=== PATIENT | male | born 1975 | race Caucasian/White ===

== ENCOUNTER 2016-10-29 20:52 | Inpatient (IN) | payer OTHER ==
[2016-10-29] MEDS ORDERED: IPRATROPIUM 0.5 MG/2.5 ML NEBU INHALATION STA (21:12)
[2016-10-29] MEDS ORDERED: SODIUM CHLORIDE 0.9% 1,000 ML IV STA ×3 (21:12→22:54)
[2016-10-29] MEDS ORDERED: ALBUTEROL NEBULIZED 2.5 MG/3 ML INHALATION STA (21:12)
[2016-10-29] MEDS ORDERED: MORPHINE SULFATE 4 MG/ML SYRINGE IVP STA (21:12)
--- NOTE | 2016-10-29 21:14 | ED ---
General Adult HPI - General Chief complaint: Shortness of Breath Stated complaint: SOB Time Seen by Provider: 10/29/16 21:01 Source: patient, EMS, RN notes reviewed, old records reviewed Mode of arrival: EMS Limitations: no limitations - History of Present Illness Initial comments: This is a 41-year-old male the ER for evaluation of severe shortness of breath and chest pain. Heart racing. Nocturnal. Patient was discharged from hospital 2 days ago brace reaction to chemotherapy. Patient denies fever. Patient states she was feeling well upon discharge. He does admit to significant stress of breath or worsening today he did try oxygen for therapy which no which had no help. - Related Data Home Medications Medication Instructions Recorded Confirmed Ibuprofen [Motrin] 800 mg PO BID PRN 10/29/16 10/29/16 fentaNYL 100MCG/HR PATCH 1 patch TRANSDERM Q72H 10/29/16 10/29/16 [Duragesic 100MCG/HR] fentaNYL 50MCG/HR PATCH [Duragesic 1 patch TRANSDERM Q72H 10/29/16 10/29/16 50MCG/HR] oxyCODONE HCL 30 mg PO QID PRN 10/29/16 10/29/16 Allergies Allergy/AdvReac Type Severity Reaction Status Date / Time Penicillins Allergy Unknown Verified 10/29/16 21:28 Childhood Review of Systems ROS Statement: Those systems with pertinent positive or pertinent negative responses have been documented in the HPI. ROS Other: All systems not noted in ROS Statement are negative. Past Medical History Past Medical History: Cancer Additional Past Medical History / Comment(s): lung bilat adrenal gland History of Any Multi-Drug Resistant Organisms: None Reported Additional Past Surgical History / Comment(s): wrist, ankle, lung Past Psychological History: No Psychological Hx Reported Smoking Status: Former smoker Past Alcohol Use History: None Reported Past Drug Use History: None Reported - Past Family History Father Family Medical History: COPD General Exam Limitations: no limitations General appearance: alert, in no apparent distress Head exam: Present: atraumatic, normocephalic, normal inspection Eye exam: Present: normal appearance, PERRL, EOMI. Absent: scleral icterus, conjunctival injection, periorbital swelling ENT exam: Present: normal exam, mucous membranes moist Neck exam: Present: normal inspection. Absent: tenderness, meningismus, lymphadenopathy Respiratory exam: Present: normal lung sounds bilaterally. Absent: respiratory distress, wheezes, rales, rhonchi, stridor Cardiovascular Exam: Present: regular rate, normal rhythm, normal heart sounds. Absent: systolic murmur, diastolic murmur, rubs, gallop, clicks GI/Abdominal exam: Present: soft, normal bowel sounds. Absent: distended, tenderness, guarding, rebound, rigid Extremities exam: Present: normal inspection, full ROM, normal capillary refill. Absent: tenderness, pedal edema, joint swelling, calf tenderness Back exam: Present: normal inspection Neurological exam: Present: alert, oriented X3, CN II-XII intact Psychiatric exam: Present: normal affect, normal mood Skin exam: Present: warm, dry, intact, normal color. Absent: rash Course Vital Signs 10/29/16 10/29/16 10/29/16 20:59 21:53 22:02 Temperature 97.8 F Pulse Rate 136 H 121 H 128 H Respiratory 22 22 Rate Blood Pressure 96/60 101/63 O2 Sat by Pulse 97 100 Oximetry 10/29/16 10/29/16 10/29/16 22:11 22:26 22:37 Temperature Pulse Rate 122 H 130 H 138 H Respiratory Rate Blood Pressure O2 Sat by Pulse Oximetry 10/29/16 23:00 Temperature Pulse Rate 112 H Respiratory 16 Rate Blood Pressure 112/65 O2 Sat by Pulse 96 Oximetry - Reevaluation(s) Reevaluation #1: 10/29/16 22:19 Patient having adequate pain relief, mild improvement of breathing, but does have diffuse pulmonary infiltrates EKG Findings - EKG Comments: EKG Findings:: EKG shows sinus tachycardia rate 120,. PA 88, QRS 88, QTC 619 Medical Decision Making - Medical Decision Making Female 41-year-old male to the ER with pneumonia, history of CVA, patient with recent hospitalization, positive nosocomial pneumonia. We'll admit for appropriate IV antibiotics - Lab Data Result diagrams: 11/04/16 05:46 11/04/16 05:46 Lab Results 10/29/16 10/29/16 10/29/16 Range/Units 20:50 20:50 20:50 WBC 10.7 H (3.8-10.6) k/uL RBC 4.35 (4.30-5.90) m/uL Hgb 11.9 L (13.0-17.5) gm/dL Hct 38.6 L (39.0-53.0) % MCV 88.8 (80.0-100.0) fL MCH 27.4 (25.0-35.0) pg MCHC 30.9 L (31.0-37.0) g/dL RDW 16.7 H (11.5-15.5) % Plt Count 363 (150-450) k/uL Neutrophils % 95 % Lymphocytes % 2 % Monocytes % 2 % Eosinophils % 1 % Basophils % 0 % Neutrophils # 10.2 H (1.3-7.7) k/uL Lymphocytes # 0.2 L (1.0-4.8) k/uL Monocytes # 0.2 (0-1.0) k/uL Eosinophils # 0.1 (0-0.7) k/uL Basophils # 0.0 (0-0.2) k/uL Hypochromasia Moderate Anisocytosis Slight PT (9.0-12.0) sec INR (<1.2) APTT (22.0-30.0) sec D-Dimer (<0.60) mg/L FEU Sodium 139 (137-145) mmol/L Potassium 4.3 (3.5-5.1) mmol/L Chloride 98 (98-107) mmol/L Carbon Dioxide 27 (22-30) mmol/L Anion Gap 14 mmol/L BUN 13 (9-20) mg/dL Creatinine 0.55 L (0.66-1.25) mg/dL Est GFR (MDRD) Af Amer >60 (>60 ml/min/1.73 sqM) Est GFR (MDRD) Non-Af >60 (>60 ml/min/1.73 sqM) Glucose 74 (74-99) mg/dL Lactic Ac Sepsis Rflx Plasma Lactic Acid Yariel (0.7-2.0) mmol/L Calcium 8.5 (8.4-10.2) mg/dL Magnesium 1.7 (1.6-2.3) mg/dL Total Bilirubin 0.6 (0.2-1.3) mg/dL AST 16 L (17-59) U/L ALT 25 (21-72) U/L Alkaline Phosphatase 189 H (38-126) U/L Total Creatine Kinase 26 L (55-170) U/L CK-MB (CK-2) 0.9 (0.0-2.4) ng/mL CK-MB (CK-2) Rel Index 3.5 Troponin I 0.049 H* (0.000-0.034) ng/mL NT-Pro-B Natriuret Pep pg/mL Total Protein 5.1 L (6.3-8.2) g/dL Albumin 2.5 L (3.5-5.0) g/dL 10/29/16 10/29/16 10/29/16 Range/Units 20:50 20:50 20:50 WBC (3.8-10.6) k/uL RBC (4.30-5.90) m/uL Hgb (13.0-17.5) gm/dL Hct (39.0-53.0) % MCV (80.0-100.0) fL MCH (25.0-35.0) pg MCHC (31.0-37.0) g/dL RDW (11.5-15.5) % Plt Count (150-450) k/uL Neutrophils % % Lymphocytes % % Monocytes % % Eosinophils % % Basophils % % Neutrophils # (1.3-7.7) k/uL Lymphocytes # (1.0-4.8) k/uL Monocytes # (0-1.0) k/uL Eosinophils # (0-0.7) k/uL Basophils # (0-0.2) k/uL Hypochromasia Anisocytosis PT 16.0 H (9.0-12.0) sec INR 1.7 H (<1.2) APTT 26.3 (22.0-30.0) sec D-Dimer 3.30 H (<0.60) mg/L FEU Sodium (137-145) mmol/L Potassium (3.5-5.1) mmol/L Chloride (98-107) mmol/L Carbon Dioxide (22-30) mmol/L Anion Gap mmol/L BUN (9-20) mg/dL Creatinine (0.66-1.25) mg/dL Est GFR (MDRD) Af Amer (>60 ml/min/1.73 sqM) Est GFR (MDRD) Non-Af (>60 ml/min/1.73 sqM) Glucose (74-99) mg/dL Lactic Ac Sepsis Rflx Plasma Lactic Acid Yariel 4.2 H* (0.7-2.0) mmol/L Calcium (8.4-10.2) mg/dL Magnesium (1.6-2.3) mg/dL Total Bilirubin (0.2-1.3) mg/dL AST (17-59) U/L ALT (21-72) U/L Alkaline Phosphatase (38-126) U/L Total Creatine Kinase (55-170) U/L CK-MB (CK-2) (0.0-2.4) ng/mL CK-MB (CK-2) Rel Index Troponin I (0.000-0.034) ng/mL NT-Pro-B Natriuret Pep 1270 pg/mL Total Protein (6.3-8.2) g/dL Albumin (3.5-5.0) g/dL 10/29/16 Range/Units 21:36 WBC (3.8-10.6) k/uL RBC (4.30-5.90) m/uL Hgb (13.0-17.5) gm/dL Hct (39.0-53.0) % MCV (80.0-100.0) fL MCH (25.0-35.0) pg MCHC (31.0-37.0) g/dL RDW (11.5-15.5) % Plt Count (150-450) k/uL Neutrophils % % Lymphocytes % % Monocytes % % Eosinophils % % Basophils % % Neutrophils # (1.3-7.7) k/uL Lymphocytes # (1.0-4.8) k/uL Monocytes # (0-1.0) k/uL Eosinophils # (0-0.7) k/uL Basophils # (0-0.2) k/uL Hypochromasia Anisocytosis PT (9.0-12.0) sec INR (<1.2) APTT (22.0-30.0) sec D-Dimer (<0.60) mg/L FEU Sodium (137-145) mmol/L Potassium (3.5-5.1) mmol/L Chloride (98-107) mmol/L Carbon Dioxide (22-30) mmol/L Anion Gap mmol/L BUN (9-20) mg/dL Creatinine (0.66-1.25) mg/dL Est GFR (MDRD) Af Amer (>60 ml/min/1.73 sqM) Est GFR (MDRD) Non-Af (>60 ml/min/1.73 sqM) Glucose (74-99) mg/dL Lactic Ac Sepsis Rflx Y Plasma Lactic Acid Yariel (0.7-2.0) mmol/L Calcium (8.4-10.2) mg/dL Magnesium (1.6-2.3) mg/dL Total Bilirubin (0.2-1.3) mg/dL AST (17-59) U/L ALT (21-72) U/L Alkaline Phosphatase (38-126) U/L Total Creatine Kinase (55-170) U/L CK-MB (CK-2) (0.0-2.4) ng/mL CK-MB (CK-2) Rel Index Troponin I (0.000-0.034) ng/mL NT-Pro-B Natriuret Pep pg/mL Total Protein (6.3-8.2) g/dL Albumin (3.5-5.0) g/dL - Radiology Data Radiology results: report reviewed (Chest x-ray is positive for pneumonia), image reviewed Disposition Clinical Impression: Nosocomial pneumonia, Lung cancer Disposition: ADMITTED IP TO THIS HOSP Condition: Fair
[2016-10-29 21:29] LABS: Anisocytosis Slight; Basophils % (A) 0 %; CH 27.1; CHCM 30.6; Eosinophils # (A) 0.1 k/uL (0-0.7); Eosinophils % (A) 1 %; HCT 38.6 % (39.0-53.0); HDW 2.63; HGB 11.9 gm/dL (13.0-17.5); Hypochromasia Moderate; Luc # (Auto) 0.04; Luc % (Auto) 0; Lymphocytes # (A) 0.2 k/uL (1.0-4.8); Lymphocytes % (A) 2 %; MCH 27.4 pg (25.0-35.0); MCHC 30.9 g/dL (31.0-37.0); MCV 88.8 fL (80.0-100.0); Mean Platelet Volume 6.9; Monocytes # (A) 0.2 k/uL (0-1.0); Monocytes % (A) 2 %; Neutrophils # (A) 10.2 k/uL (1.3-7.7); Neutrophils % (A) 95 %; RBC 4.35 m/uL (4.30-5.90); RDW 16.7 % (11.5-15.5); WBC 10.7 k/uL (3.8-10.6); WBC (Perox) 11.38
[2016-10-29 21:34] LABS: ALT 25 U/L (21-72); AST 16 U/L (17-59); Alkaline Phosphatase 189 U/L (38-126); Anion Gap 14 mmol/L; Blood Urea Nitrogen 13 mg/dL (9-20); Calcium 8.5 mg/dL (8.4-10.2); Carbon Dioxide 27 mmol/L (22-30); Chloride 98 mmol/L (98-107); Glucose 74 mg/dL (74-99); Magnesium 1.7 mg/dL (1.6-2.3); Non-African American GFR(MDRD) >60 (>60 ml/min/1.73 sqM); Potassium 4.3 mmol/L (3.5-5.1); Sodium 139 mmol/L (137-145); Total Bilirubin 0.6 mg/dL (0.2-1.3); Total Protein 5.1 g/dL (6.3-8.2)
[2016-10-29 21:36] LABS: INR 1.7 (<1.2); Partial Thromboplastin Time 26.3 sec (22.0-30.0)
--- NOTE | 2016-10-29 22:05 | XR ---
EXAMINATION TYPE: XR chest 2V DATE OF EXAM: 10/29/2016 COMPARISON: NONE HISTORY: Short of breath TECHNIQUE: Frontal and lateral views of the chest are obtained. FINDINGS: There are extensive bilateral pulmonary infiltrates and worse in the upper lobes. There is a right central venous catheter with tip in the superior vena cava. There is no sign of pleural effu ric. There are chest leads. There is vertebroplasty in the mid thoracic spine. There appears to be s ome retraction of the pulmonary leonard to the lung apices. IMPRESSION: Extensive bilateral pulmonary infiltrates. Comparison with an old exam would be helpful. This could relate to idiopathic fibrosis or sarcoidosis. RDS cannot be excluded.
[2016-10-29 22:07] LABS: Creatine Kinase MB 0.9 ng/mL (0.0-2.4)
[2016-10-29 22:10] LABS: Troponin I 0.049 ng/mL (0.000-0.034)
[2016-10-29] MEDS ORDERED: RX INFO: IV CONTRAST WAS GIVEN 1 EACH MISC MISCELLANE PRN (22:10)
[2016-10-29] MEDS ORDERED: LEVOFLOXACIN 750MG-D5W PMX 750 MG in DEXTROSE/WATER 1 150ML.BAG IVPB STA (22:21)
[2016-10-29] MEDS ORDERED: CEFEPIME 2 GM in SODIUM CHLORIDE 0.9% 50 ML IVPB STA (22:22)
[2016-10-29] MEDS ORDERED: MAGNESIUM SULFATE-D5W PMX 1 GM in DEXTROSE/WATER 1 100ML.BAG IVPB SCH (22:30)
[2016-10-29] MEDS ORDERED: SODIUM CHLORIDE 0.9% 500 ML IV STA (22:54)
[2016-10-29] MEDS: CEFEPIME 2 GM in SODIUM CHLORIDE 0.9% 50 ML IVPB SCH (23:14)
--- NOTE | 2016-10-29 23:56 | CT ---
EXAM: CT Chest With Intravenous Contrast CLINICAL HISTORY: Shortness of breath and elevated d-dimer TECHNIQUE: Axial computed tomography images of the chest with intravenous contrast during the arterial phase of enhancement. CTDI is 58.8 mGy and DLP is 296.4 mGy-cm. This CT exam was performed using one or more of the following dose reduction techniques: automated exposure control, adjustment of the mA and/or kV according to patient size, and/or use of iterative reconstruction technique. COMPARISON: None. FINDINGS: Pulmonary arteries: Main pulmonary artery enlargement. No pulmonary embolism. Aorta: No acute findings. No thoracic aortic aneurysm. Other arteries: Large, incompletely visualized soft tissue mass potentially arising from left adrenal gland measuring 5.1 x 6.0 x 4.9 cm. This mass encases and narrows the proximal and mid splenic artery. This mass abuts the pancreatic body and tail. The mass has minimal contact with the stomach and has probable mass effect upon the left kidney. Lungs: Chronic left upper lobe collapse with large area of left upper lobe cavitation. Left hilar elevation. Left apex cavitary area measures 5.1 x 4.4 x 3.1 cm. Paraseptal emphysema. Extensive right lung consolidation and ground-glass predominantly in the upper lung zones and middle lobe. Pleural space: Small layering right pleural effusion. No pneumothorax. Heart: Unremarkable. No cardiomegaly. No significant pericardial effusion. No evidence of RV dysfunction. Bones/joints: T8 vertebral body augmentation procedure. No acute fracture. No dislocation. Soft tissues: Unremarkable. Lymph nodes: Possible mid-esophageal thickening versus mediastinal adenopathy. Other findings: Large, incompletely visualized soft tissue mass potentially arising from left adrenal gland measuring 5.1 x 6.0 x 4.9 cm. This mass encases and narrows the proximal and mid splenic artery. This mass abuts the pancreatic body and tail. The mass has minimal contact with the stomach and has probable mass effect upon the left kidney. IMPRESSION: 1. No pulmonary emboli. 2. Probable multifocal right lung pneumonia. Other etiologies such as pulmonary hemorrhage could have this appearance, but are statistically less likely. Recommend follow-up to radiographic resolution. 3. Large left adrenal probable metastasis, particularly given history of lung cancer. Recommend nonemergent CT abdomen and pelvis with IV and oral contrast to complete staging. This mass is amenable to percutaneous biopsy. 4. Chronic left upper lobe collapse with cavitation, this may represent sequela of reported history of lung cancer. Correlation with prior imaging would be useful if possible. 5. Findings which may represent pulmonary hypertension, consider cardiology evaluation. 6. Mediastinal findings which may be followed on subsequent studies, may represent esophageal thickening or mediastinal adenopathy.
[2016-10-30] MEDS ORDERED: PNEUMONIA PROTOCOL UTILIZED 1 EACH MISC PO PRN
[2016-10-30] MEDS ORDERED: LEVALBUTEROL NEB 1.25 MG/3 ML AMP INHALATION PRN
[2016-10-30] MEDS ORDERED: IPRATROPIUM-ALBUTEROL 3 ML NEB INHALATION PRN (00:54)
[2016-10-30] MEDS ORDERED: PIPERACILLIN-TAZOBACTAM 3.375 GM in DEXTROSE/WATER 1 50ML.BAG IVPB SCH (01:00)
[2016-10-30] MEDS ORDERED: IBUPROFEN 800 MG TAB PO PRN (01:40)
[2016-10-30] MEDS: SODIUM CHLORIDE 0.9% 1,000 ML IV SCH ×3 (02:10→22:29)
[2016-10-30 02:52] LABS: Glucose,Whole Blood 108 mg/dL (75-99)
[2016-10-30] MEDS ORDERED: IV VANCOMYCIN PER PHARMACY 1 EACH MISC MISCELLANE PRN (04:09)
[2016-10-30] MEDS ORDERED: VANCOMYCIN 1,250 MG in SODIUM CHLORIDE 0.9% 250 ML IVPB SCH (05:00)
[2016-10-30 05:07] LABS: Anisocytosis Slight; Basophils % (A) 0 %; CH 26.6; CHCM 30.6; Eosinophils # (A) 0.1 k/uL (0-0.7); Eosinophils % (A) 1 %; HCT 30.5 % (39.0-53.0); HDW 2.65; Hypochromasia Moderate; Luc # (Auto) 0.03; Luc % (Auto) 0; Lymphocytes # (A) 0.1 k/uL (1.0-4.8); Lymphocytes % (A) 1 %; MCH 27.7 pg (25.0-35.0); MCHC 31.9 g/dL (31.0-37.0); Mean Platelet Volume 6.8; Monocytes # (A) 0.3 k/uL (0-1.0); Monocytes % (A) 3 %; Neutrophils # (A) 9.3 k/uL (1.3-7.7); Neutrophils % (A) 95 %; RDW 16.5 % (11.5-15.5); WBC 9.8 k/uL (3.8-10.6); WBC (Perox) 10.08
[2016-10-30 05:20] LABS: Anion Gap 8 mmol/L; Blood Urea Nitrogen 11 mg/dL (9-20); Calcium 7.6 mg/dL (8.4-10.2); Carbon Dioxide 24 mmol/L (22-30); Chloride 101 mmol/L (98-107); Glucose 83 mg/dL (74-99); Magnesium 1.6 mg/dL (1.6-2.3); Non-African American GFR(MDRD) >60 (>60 ml/min/1.73 sqM); Phosphorous 3.9 mg/dL (2.5-4.5); Potassium 3.9 mmol/L (3.5-5.1); Sodium 133 mmol/L (137-145)
[2016-10-30 05:25] LABS: HGB 9.7 gm/dL (13.0-17.5)
[2016-10-30] MEDS ORDERED: Magnesium Replacement Protocol 1 EACH MISC MISCELLANE PRN (06:24)
[2016-10-30] MEDS: MAGNESIUM SULFATE-D5W PMX 1 GM in DEXTROSE/WATER 1 100ML.BAG IVPB SCH ×2 (08:37→10:01)
[2016-10-30] MEDS: CEFEPIME 2 GM in SODIUM CHLORIDE 0.9% 50 ML IVPB SCH (08:39)
[2016-10-30 08:43] LABS: Appearance,Urine Clear (Clear); Bacteria,Urine Rare /hpf; Bilirubin,Urine Negative (Negative); Glucose,Urine (UA) Negative (Negative); Ketones,Urine Trace (Negative); Leukocyte Esterase,Urine Negative (Negative); Mucus,Urine Rare /hpf; Nitrite,Urine Negative (Negative); PH, Urine 5.5 (5.0-8.0); Particle Count 1613; Protein,Urine Trace (Negative); RBC,Urine 1 /hpf (0-5); Specific Gravity,Urine 1.028 (1.001-1.035); Squamous Epithelial Cell,Urine <1 /hpf (0-4); UA Billing (MACRO vs. MICRO) MICRO; Urobilinogen,Urine <2.0 mg/dL (<2.0); WBC,Urine 1 /hpf (0-5)
[2016-10-30] MEDS: IPRATROPIUM-ALBUTEROL 3 ML NEB INHALATION SCH ×4 (08:46→20:34)
[2016-10-30] MEDS ORDERED: ONDANSETRON 4 MG/2 ML VIAL IVP PRN (08:58)
[2016-10-30] MEDS ORDERED: MICAFUNGIN 100 MG in SODIUM CHLORIDE 0.9% 100 ML IVPB SCH (09:15)
--- NOTE | 2016-10-30 09:57 | P.CNPUL ---
History of Present Illness Consult date: 10/30/16 Reason for consult: dyspnea, pneumonia History of present illness: 41 yo male patient was diagnosed having non-small cell lung cancer approximately 2 years ago and he has been treated at [facility] by Dr. Heather Aguilar. The patient lives in [place] the patient was visiting his family in [facility] where over the past 24 hours he progressively became short of breath and he presented to the emergency department yesterday with acute respiratory failure. The patient has increased cough, increased shortness of breath, increased chest congestion, cough and not copious amount of thick purulent yellowish sputum. At the same time he had become significantly lethargic and weak. He had a low-grade temperature 100.3 and currently is afebrile. He presented emergency department and the patient was given a CAT scan of the chest that showed multifocal right lung pneumonia. At the same time there was evidence of chronic left upper lobe collapse with cavitation which probably is in agreement with this history of non-small cell lung cancer. There was also a large left adrenal mass which is probably best that it from an underlying lung cancer. No evidence of any pulmonary embolism. The patient got moved to the intensive care unit. Overnight he had episodes of hypotension and he was given a total of 2 and half liters of IV fluids and currently is on a 0.9 normal saline running at 100 mL an hour. The patient is also covered with broad-spectrum antibiotics and I further adjusted antibiotics to include a combination of Merrem, vancomycin, Levaquin and micafungin was also added due to concerns of fungal pneumonia. He is quite uncomfortable. Is complaining of frequent cough and chest congestion. His white cell count is at 9.8. He is on no pressors at this point. No change in mental status. Very much lethargic. His lactic acid level was at 4.6 and femoral admission dropped down to 1.2 In terms of history of lung cancer, the patient was diagnosed approximately 2 years ago. He probably had located vessel disease and he was initially treated with a combination of chemoradiation therapy. The patient subsequently progressed and developed metastases to his brain and he has undergone craniotomy and resection of cancerous lesions and subsequent brain radiation. He also developed adrenal metastases and spinal metastases with radiation therapy. He was given systemic chemotherapy and the exact schedule of chemotherapy is not clear to me at this point. He was also given oral chemotherapy including Opdivo. He is an ex-smoker. No history of emphysema or asthma. No history of DVT or pulmonary embolism. He apparently was doing well and he was in a good state of health prior to him presenting to our emergency department. He lives in a [place] area. He lives with his who is not in the area. He is nauseated. No diarrhea. No change in mental status at this point. Review of Systems Constitutional: Reports anorexia, Reports fatigue, Reports fever, Reports lethargy, Reports poor appetite, Reports weakness, Reports weight loss Eyes: denies blurred vision, denies bulging eye, denies decreased vision Ears: deny: decreased hearing, ear discharge, earache Ears, nose, mouth and throat: Denies headache, Denies sore throat Cardiovascular: Reports decreased exercise tolerance, Reports dyspnea on exertion, Reports shortness of breath Respiratory: Reports cough, Reports dyspnea, Reports excessive sputum, Reports wheezing Gastrointestinal: Reports nausea Genitourinary: Reports as per HPI Musculoskeletal: Denies myalgias Musculoskeletal: absent: ankle pain, ankle stiffness, ankle swelling Integumentary: Denies pruritus, Denies rash Neurological: Denies numbness, Denies weakness Endocrine: Denies fatigue, Denies weight change Hematologic/Lymphatic: Reports as per HPI Past Medical History Past Medical History: Cancer Additional Past Medical History / Comment(s): Metastatic non-small cell lung cancer details discussed above. Patient has had brain metastases and he has received craniotomy/surgical resection of metastases and radiation therapy. He is also known to have metastases to his left adrenal gland and spine. History of Any Multi-Drug Resistant Organisms: None Reported Additional Past Surgical History / Comment(s): Craniotomy with resection of metastatic brain lesions, wrist and leg surgery, lung biopsy Past Anesthesia/Blood Transfusion Reactions: No Reported Reaction Past Psychological History: No Psychological Hx Reported Smoking Status: Former smoker Past Alcohol Use History: None Reported Past Drug Use History: None Reported - Past Family History Father Family Medical History: COPD Medications and Allergies Home Medications Medication Instructions Recorded Confirmed Type Ibuprofen [Motrin] 800 mg PO BID PRN 10/29/16 10/29/16 History fentaNYL 100MCG/HR PATCH 1 patch TRANSDERM Q72H 10/29/16 10/29/16 History [Duragesic 100MCG/HR] fentaNYL 50MCG/HR PATCH [Duragesic 1 patch TRANSDERM Q72H 10/29/16 10/29/16 History 50MCG/HR] oxyCODONE HCL 30 mg PO QID PRN 10/29/16 10/29/16 History Allergies Allergy/AdvReac Type Severity Reaction Status Date / Time Penicillins Allergy Unknown Verified 10/29/16 21:28 Childhood Physical Exam Vitals: Vital Signs Temp Pulse Pulse Resp BP BP Pulse Ox 10/30/16 08:00 100 25 H 92/57 94 L 10/30/16 07:30 98 29 H 107/64 92 L 10/30/16 07:00 98 22 89/59 91 L 10/30/16 06:30 97 20 94/56 95 10/30/16 06:00 98 81/48 98 10/30/16 05:30 100 29 H 91/55 94 L 10/30/16 05:00 104 H 29 H 87/49 94 L 10/30/16 04:30 102 H 35 H 90/43 97 10/30/16 04:00 109 H 115 H 26 H 87/47 94 L 10/30/16 03:30 114 H 21 98/52 94 L 10/30/16 03:00 114 H 27 H 97/59 95 10/30/16 02:51 100.3 F H 114 H 38 H 97/59 97 10/30/16 01:46 99.4 F 115 H 16 111/59 93 L 10/30/16 00:29 112 H 22 107/55 98 10/29/16 23:00 112 H 16 112/65 96 10/29/16 22:37 138 H 10/29/16 22:26 130 H 10/29/16 22:11 122 H 10/29/16 22:02 128 H 22 101/63 100 10/29/16 21:53 121 H 10/29/16 20:59 97.8 F 136 H 22 96/60 97 Intake and Output 10/29/16 10/30/16 10/30/16 22:59 06:59 14:59 Intake Total 525 425 Output Total 250 275 Balance 275 150 Intake: IV 400 200 Sodium Chloride 0.9% 1, 400 200 000 ml @ 100 mls/hr IV . Q10H [facility] Rx#:[id number] Intake, IV Titration 125 225 Amount Magnesium Sulfate-D5w Pmx 100 1 gm In Dextrose/Water 1 100ml.bag @ 100 mls/hr IVPB Q1H [facility] Rx#: [id number] Vancomycin 1,250 mg In 125 125 Sodium Chloride 0.9% 250 ml @ 125 mls/hr IVPB Q8H [facility] Rx#:[id number] Output: Urine 250 275 Other: Voiding Method Urinal # Voids 1 Weight 63.503 kg 65.4 kg Head exam was generally normal. There was no scleral icterus or corneal arcus. Mucous membranes were moist. Scars of previous craniotomy seen over the left forehead area.Neck was supple and without jugular venous distension, thyromegaly , or carotid bruits. Carotids were easily palpable bilaterally. There was no adenopathy. Lung sounds are diminished and there is diffuse and rhonchi and crackles involving the right lung compared to the left. There is also prolongation of expiratory phase of breathing and scattered expiratory wheezes throughout the lung fernandez bilaterally. Patient's breathing is labored and he is not using excessive muscle breathing.Cardiac exam revealed the PMI to be normally situated and sized. The rhythm was regular and no extrasystoles were noted during several minutes of auscultation. The first and second heart sounds were normal and physiologic splitting of the second heart sound was noted. There were no murmurs, rubs, clicks, or gallops.Abdominal exam revealed normal bowel sounds. The abdomen was soft, non-tender, and without masses, organomegaly , or appreciable enlargement of the abdominal aorta.Examination of the extremities revealed easily palpable radial, femoral and pedal pulses. There was no cyanosis, clubbing or edema. Results - Laboratory Findings CBC and BMP: 10/30/16 04:55 10/30/16 04:55 PT/INR, D-dimer PT 16.0 sec (9.0-12.0) H 10/29/16 20:50 INR 1.7 (<1.2) H 10/29/16 20:50 D-Dimer 3.30 mg/L FEU (<0.60) H 10/29/16 20:50 Abnormal lab findings: Abnormal Labs 10/29/16 10/29/16 10/29/16 20:50 20:50 20:50 WBC 10.7 H RBC Hgb 11.9 L Hct 38.6 L MCHC 30.9 L RDW 16.7 H Neutrophils # 10.2 H Lymphocytes # 0.2 L PT INR D-Dimer Sodium Creatinine 0.55 L POC Glucose (mg/dL) Plasma Lactic Acid Yariel Calcium AST 16 L Alkaline Phosphatase 189 H Total Creatine Kinase 26 L Troponin I 0.049 H* Total Protein 5.1 L Albumin 2.5 L Urine Protein Urine Ketones Urine Blood Urine Bacteria Urine Mucus 10/29/16 10/29/16 10/30/16 20:50 20:50 00:35 WBC RBC Hgb Hct MCHC RDW Neutrophils # Lymphocytes # PT 16.0 H INR 1.7 H D-Dimer 3.30 H Sodium Creatinine POC Glucose (mg/dL) Plasma Lactic Acid Yariel 4.2 H* 4.6 H* Calcium AST Alkaline Phosphatase Total Creatine Kinase Troponin I Total Protein Albumin Urine Protein Urine Ketones Urine Blood Urine Bacteria Urine Mucus 10/30/16 10/30/16 10/30/16 02:39 04:55 04:55 WBC RBC 3.50 L Hgb 9.7 L D Hct 30.5 L MCHC RDW 16.5 H Neutrophils # 9.3 H Lymphocytes # 0.1 L PT INR D-Dimer Sodium 133 L Creatinine 0.40 L POC Glucose (mg/dL) 108 H Plasma Lactic Acid Yariel Calcium 7.6 L AST Alkaline Phosphatase Total Creatine Kinase Troponin I Total Protein Albumin Urine Protein Urine Ketones Urine Blood Urine Bacteria Urine Mucus 10/30/16 08:30 WBC RBC Hgb Hct MCHC RDW Neutrophils # Lymphocytes # PT INR D-Dimer Sodium Creatinine POC Glucose (mg/dL) Plasma Lactic Acid Yariel Calcium AST Alkaline Phosphatase Total Creatine Kinase Troponin I Total Protein Albumin Urine Protein Trace H Urine Ketones Trace H Urine Blood Trace H Urine Bacteria Rare H Urine Mucus Rare H - Diagnostic Findings Chest x-ray: image reviewed Assessment and Plan Plan: Assessment 1 right lung pneumonia. The patient has extensive multi-lobar/multifocal consolidation of the right lung which is most likely a presentation of an underlying acute pneumonia. There is areas of consolidation and groundglass changes more predominant in the upper lobes and in the mud lobes. The patient also has chronic cavitary changes in the left upper lobe which probably is chronic than acute. Rule out routine community acquired pathogens. Rule out gram-negative and staphylococcal pneumonia. Rule out fungal pneumonia especially with a chronic cavitary changes on the left. The patient was apparently hospitalized on multiple occasions and the possibility of hospital- acquired pathogen cannot be completely excluded. 2 acute hypoxic respiratory failure secondary to above 3 non-small cell lung cancer, metastatic with metastases to his brain, left adrenal gland and spine. The exact details of the treatment was offered to this patient is not available however the patient admits of taking chemoradiation therapy to his chest and subsequent palliative radiation therapy to metastatic foci. 4 anemia, likely chronic 5 lactic acidosis improving and the lactic acid level is down to 1.2 Plan Keep the patient intensive care unit. The patient is critically ill. There is increased chance that the patient may progress into respiratory failure requiring intubation mechanical ventilation. His pneumonia is quite extensive at this point. We'll cover this patient with broad-spectrum antibiotics. We' ll put him on a combination of IV Merrem, IV Levaquin, IV vancomycin and IV micafungin GEN. Obtain sputum Gram stain and culture. Obtain blood culture. Put the patient on DuoNeb the restrooms around the clock. IV Solu-Medrol 60 mg every 6 hours. Oxygen at 5 L/m nasal cannula and high flow oxygen if needed. We'll discuss the case with the physicians down in [facility] cancer is to admit the patient states most of his care and I think is better served in a setting where he is around his oncologist specially with his advanced lung cancer. Based on that, I'm going to make recommendations for this patient to be transferred to, was [facility]. He will need ICU care. He will need oncology evaluation. His prognosis poor based on the above-mentioned metastatic stage IV non-small cell lung cancer. Meanwhile, the patient will be taken care of here. The patient will be given Lovenox for DVT prophylaxis. He will be given Zofran for nausea. He'll be given oxycodone 30 mg 4 times a day when necessary for pain. We'll continue to follow. Time with Patient: Greater than 30
[2016-10-30] MEDS: ENOXAPARIN 40 MG/0.4 ML SYRINGE SQ SCH (10:01)
[2016-10-30] MEDS: HYDROmorphone 1 MG/ML 1 ML SYRINGE IVP PRN (10:20)
[2016-10-30] MEDS: MEROPENEM 2 GM in SODIUM CHLORIDE 0.9% 100 ML IVPB SCH (10:20)
[2016-10-30] MEDS: methylPREDNISolone SOD SUCCI 125 MG/2 ML VIAL IV SCH ×2 (12:35→18:43)
[2016-10-30] MEDS: FAMOTIDINE 20 MG/2 ML VIAL IV SCH ×2 (12:36→22:29)
[2016-10-30] MEDS: VANCOMYCIN 1,250 MG in SODIUM CHLORIDE 0.9% 250 ML IVPB SCH ×2 (14:47→22:29)
--- NOTE | 2016-10-30 16:20 | CONS ---
CONSULTATION Ramirez Christianson is a 41-year-old male, who presented to the ED at [facility] with weakness, increasing shortness of breath and chest tightness. He has a known history of non-small cell cancer of the lung with metastatic disease initially diagnosed 2 years ago and had recently been on chemotherapy that was stopped. This stopped because of side effects and he was actually admitted to [facility] or [facility] about a week ago. He was in the hospital for about 4 days and discharged about 3 days ago. He was also found to be hypotensive and was admitted to the ICU. He has somewhat of a poor historian. Does not give any history of discrete fever. His CT scan of the chest showed evidence of extensive pneumonia on the right side and a pulmonary consultation was placed. PAST MEDICAL HISTORY: Positive for non-small cell cancer of the lung initially in the left upper lobe, I believe, for which he received chemotherapy and radiation. He developed a [employer] lesion and had a craniotomy done. He has adrenal lesions. He had been on Opdivo for a short while and subsequently progressed. He subsequently was placed on afatinib or Gilotrif, which is EGFR karina. SOCIAL HISTORY: Patient used to smoke about 1-2 packs of cigarettes per day. 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 ALLERGIES: Patient is ALLERGIC TO PENICILLIN. FAMILY HISTORY: Positive for COPD in his father. MEDICATIONS: Medications prior to admission were ibuprofen, oxycodone, fentanyl. REVIEW OF SYSTEMS: Noncontributory. PHYSICAL EXAMINATION: Respiratory rate is 33, pulse rate of 111 and blood pressure 117/71, O2 saturation on 5 L by nasal cannula is 97%. Patient is breathing shallow but rapidly. HEENT reveals pupils are equal. No jugular venous distention. Chest reveals bronchovesicular breath sounds on the right side. Occasional wheeze. Cardiovascular system reveals an S1, S2. No S3, no S4. Short systolic murmur is heard. There is a MediPort in place in the right anterior chest wall. Abdomen is soft. There is no pedal edema. LABS: Reveal a white count of 9.8, hemoglobin of 9.7, sodium 133, potassium 3.9, chloride 101, bicarb 24, BUN 11, creatinine of 0.4. Lactic acid initially at midnight was 4.6, and is now 1.2. CT scan of the chest was personally reviewed by me which shows cavitary area at the left upper lobe area which is most likely post cancer treatment from his chemo and radiation. On the right side there is extensive infiltrate in the right upper lobe, the right middle lobe and the superior segment of the right lower lobe with some sparing in the right lung base. IMPRESSION: At this time. 1. Aspiration type pneumonia is likely on the right side. 2. Non-small cell cancer of the lung with metastatic disease. 3. Immunocompromised state secondary to recent chemotherapy. 4. Lactic acidosis secondary to sepsis with septic shock. At this point in time from a pulmonary standpoint, would continue DVT prophylaxis. Would add GI prophylaxis. Would continue him on vancomycin, meropenem and micafungin. Would have ID further evaluate the patient. Would consider a short course of steroids. Continue bronchodilators at this time. His prognosis at this time is guarded. He was counseled regarding his condition in the presence of his . Apparently the patient is being transferred to [facility] in [place]. We will follow him closely during his hospital stay over here. MMODL / IJN: [id number] /
[2016-10-30] MEDS ORDERED: NALOXONE 0.4 MG/ML 1 ML VIAL IV PRN (19:13)
[2016-10-30] MEDS: LEVOFLOXACIN 750MG-D5W PMX 750 MG in DEXTROSE/WATER 1 150ML.BAG IVPB SCH (22:29)
[2016-10-31] MEDS: methylPREDNISolone SOD SUCCI 125 MG/2 ML VIAL IV SCH ×5 (00:22→23:37)
[2016-10-31] MEDS: MEROPENEM 1 GM in SODIUM CHLORIDE 0.9% 100 ML IVPB SCH ×4 (00:31→23:43)
[2016-10-31] MEDS: HYDROmorphone 1 MG/ML 1 ML SYRINGE IVP PRN ×6 (00:39→23:43)
[2016-10-31 05:32] LABS: Anisocytosis Slight; Basophils % (A) 0 %; CH 27.9; CHCM 31.8; Eosinophils % (A) 0 %; HCT 28.3 % (39.0-53.0); Hypochromasia Slight; Luc # (Auto) 0.01; Luc % (Auto) 0; Lymphocytes # (A) 0.1 k/uL (1.0-4.8); Lymphocytes % (A) 1 %; MCHC 31.8 g/dL (31.0-37.0); Mean Platelet Volume 7.2; Monocytes # (A) 0.1 k/uL (0-1.0); Monocytes % (A) 2 %; Neutrophils # (A) 5.4 k/uL (1.3-7.7); Neutrophils % (A) 97 %; RBC 3.22 m/uL (4.30-5.90); RDW 17.3 % (11.5-15.5); WBC 5.6 k/uL (3.8-10.6); WBC (Perox) 5.72
[2016-10-31 05:43] LABS: Anion Gap 9 mmol/L; Blood Urea Nitrogen 10 mg/dL (9-20); Calcium 7.9 mg/dL (8.4-10.2); Carbon Dioxide 24 mmol/L (22-30); Chloride 101 mmol/L (98-107); Glucose 100 mg/dL (74-99); Magnesium 1.9 mg/dL (1.6-2.3); Non-African American GFR(MDRD) >60 (>60 ml/min/1.73 sqM); Phosphorous 3.2 mg/dL (2.5-4.5); Potassium 3.4 mmol/L (3.5-5.1); Sodium 134 mmol/L (137-145)
[2016-10-31] MEDS ORDERED: POTASSIUM CHLORIDE 20 MEQ in WATER FOR INJECTION 1 100ML.BAG IVPB ONE (06:17)
[2016-10-31] MEDS: VANCOMYCIN 1,250 MG in SODIUM CHLORIDE 0.9% 250 ML IVPB SCH ×3 (07:18→22:45)
[2016-10-31] MEDS: MAGNESIUM SULFATE-D5W PMX 1 GM in DEXTROSE/WATER 1 100ML.BAG IVPB SCH ×2 (07:18→08:27)
--- NOTE | 2016-10-31 07:38 | XR ---
EXAMINATION TYPE: XR chest 1V DATE OF EXAM: 10/31/2016 CLINICAL HISTORY: Difficulty breathing progress study. TECHNIQUE: Single AP portable upright view of the chest is obtained. COMPARISON: Chest x-ray and CT chest from 2 days earlier. FINDINGS: There is left apical pleural thickening and cavitation redemonstrated. There is backgroun d emphysematous change with left basilar scarring redemonstrated. There is stable right-sided internal jugular Mediport catheter. There is diffuse right lung opacity w ith more prominent consolidation in the right middle lobe silhouetting right heart border redemonstra skyler. There is right apical pleural thickening and scarring. Right-sided volume loss with mediastinal shift is redemonstrated. Cardiac silhouette size is within normal limits. Osseous structures are intact. IMPRESSION: Overall stable findings, chronic emphysematous change with bilateral upper lung pleural thickening and scarring with diffuse right infiltrates all redemonstrated.
[2016-10-31] MEDS: SODIUM CHLORIDE 0.9% 1,000 ML IV SCH ×2 (07:53→19:49)
[2016-10-31] MEDS: ENOXAPARIN 40 MG/0.4 ML SYRINGE SQ SCH (08:04)
[2016-10-31] MEDS: IPRATROPIUM-ALBUTEROL 3 ML NEB INHALATION SCH ×4 (08:31→20:08)
--- NOTE | 2016-10-31 09:33 | CONS ---
CONSULTATION DATE OF SERVICE: 10/30/2016. REASON FOR CONSULTATION: Pneumonia and antibiotic recommendation. HISTORY OF PRESENT ILLNESS: The patient is a 41-year-old, male, with past medical history significant for non-small cell cancer of the lung with mets to the adrenal gland. Patient diagnosed about 2 years ago. Lately he has been on oral chemotherapy that apparently was stopped because of significant GI side effect in the form of nausea, vomiting and poor oral intake. The patient was recently admitted at [facility] for about 4 days. The patient was treated for dehydration. The , who provided most of the history did mention that they ran all types of scans and told there was no evidence of any infection and the patient did not receive any antibiotic therapy while he was at [facility]. The patient was discharged home on October 27, that was Tuesday. The patient came to visit his parents who live in the [place] the next day on . On the next day, Tuesday, the patient was brought in to the [facility] ER by the EMS with rather sudden onset of shortness of breath. The patient gets short of breath very quickly. Also started having some cough with nonproductive sputum. Some pain on the right side of the chest. No clear history of any nausea, vomiting or any choking on the food. The patient, on arrival to the ER, did have a chest x-ray, which shows extensive bilateral pulmonary infiltrates that has been followed by a CT angiogram that was negative for PE. However, did show multifocal pneumonia on the right side in addition to the chronic left upper lobe collapse with cavitation. Patient has been admitted to the ICU for which the patient has been started on meropenem 2 gm q.8h, vancomycin, Levaquin and Micafungin. ID was consulted for further recommendation regarding antibiotic therapy. The patient did have a low-grade fever of 100.3, with no fever since then. On arrival to the ER, the patient did have a normal white count of 10.7, he did have a blood culture obtained which is currently pending. Also this information has been obtained from review of the chart and talking to the who is present at bedside as the patient himself remains to be lethargic and unable to provide any reliable history. REVIEW OF SYSTEM: Could not be reliably obtained, though the positive points have been mentioned in the HPI. PAST MEDICAL HISTORY: Significant for metastatic lung cancer, dehydration. PAST SURGICAL HISTORY: Significant for lung biopsy, wrist and ankle surgery. SOCIAL HISTORY: Recently quit smoking. No drinking or any drug use. FAMILY HISTORY: No pertinent findings noticed. ALLERGIES: PENICILLIN. MEDICATIONS: Include the patient is currently on: 1. DuoNeb. 2. Lovenox. 3. Pepcid. 4. Dilaudid. 5. Motrin. 6. Meropenem. 7. Vancomycin. 8. Micafungin. 9. Solu-Medrol. 10.Narcan. 11.Zofran. EXAMINATION: Blood pressure is 119/77, pulse 75, temp 98, T-max 100.3. He is 93% on 4 L nasal cannula. General description is middle-aged male, lying in bed, in no distress. No tachypnea or accessory muscles of respiration use. HEENT examination: Pallor. No scleral icterus. Oral mucosa membranes dry. Neck trachea central. No thyromegaly. Lungs: Unlabored breathing with coarse breath sounds bilaterally. Occasional wheeze. Heart is S1, S2. Regular rate and rhythm. ABDOMEN: Soft, no tenderness. No guarding or rigidity. EXTREMITIES: No edema of feet. Skin examination: No rash or mass palpable. Neurologic: The patient is lethargic, arousable. Oriented to place, and person. Mood and affects normal. LABORATORY DATA: Hemoglobin is 9.7, white count 9.8 with a BUN of 11, creatinine 0.40. Blood culture currently pending. CTA chest report as mentioned earlier. DIAGNOSTIC IMPRESSION AND PLAN: The patient admitted to the hospital with difficulty in breathing rather sudden in onset with a low-grade fever in a patient who did have metastatic lung cancer with chronic collapse of the left upper lobe with some cavitation and pneumonia on the right side. The patient was recently admitted to [facility] for dehydration and apparently not treated with antibiotic therapy with scans there at that facility did not show evidence of pneumonia. Will need to cover for the resistant gram positive as well as gram negative pathogen and less likely pneumonia. PLAN: 1. We will try to obtain sputum for Gram stain, culture and sensitivity. 2. We will keep the patient on vancomycin and meropenem and Levaquin, however, discontinue micafungin. 3. We will follow up on clinical condition and culture to further adjust medication if needed. Thank you for this consultation. Will follow this patient along with you. MMODL / IJN: [id number] /
[2016-10-31] MEDS: FAMOTIDINE 20 MG/2 ML VIAL IV SCH (09:35)
--- NOTE | 2016-10-31 09:39 | HP ---
HISTORY AND PHYSICAL DATE OF SERVICE: 10/30/2016. CHIEF COMPLAINT: Shortness of breath. HISTORY OF PRESENT ILLNESS: This 41-year-old gentleman with a past medical history non-small cell carcinoma on chemotherapy, recently being followed by primary physicians elsewhere, is living in the [facility]. The patient was recently visiting family in the area. The patient was admitted to the hospital and the patient was also recently started on an antibiotics. The patient complained of shortness of breath as well as extensive right lung pneumonia and also acute respiratory failure. The patient is admitted for evaluation and treatment. There is no history of fevers or rigors. No history of headache, loss of consciousness or seizures. PAST MEDICAL HISTORY: History of non-small cell lung cancer, history of craniotomy with resection of the metastatic brain lesions. MEDICATIONS: Home medications prior to admission include: 1. Motrin 800 mg b.i.d. p.r.n.. 2. Oxycodone 30 mg daily. 3. Fentanyl patch 150 mcg every 72 hours. ALLERGIES: Penicillin. FAMILY HISTORY: History of COPD. SOCIAL HISTORY: History of smoking. REVIEW OF SYSTEMS: Could not be taken, the patient is slightly drowsy at this time. PHYSICAL EXAMINATION: VITAL SIGNS: Pulse 102, blood pressure 116/72, respirations 22, temp afebrile, pulse ox 94% on 4 L. HEENT: Conjunctivae normal. Oral mucosa moist. NECK: No JVD. No carotid bruits. No lymph node enlargement. CARDIOVASCULAR: S1, S2. No S3 or S4. LUNG: Breath sounds diminished at the bases. Few scattered rhonchi and crackles. ABDOMEN: Soft, nontender, obese, nontender. No mass palpable. NEUROLOGIC: Diffusely weak. LYMPHATICS: No lymph nodes palpable. SKIN: No rashes. LABS: WBC 9, hemoglobin 9.7, sodium 133. ASSESSMENT: 1. Acute right lung pneumonia, possible gram-negative with acute hypoxic respiratory failure. 2. Non-small cell lung cancer, status post chemotherapy. 3. History of metastatic brain lesions. 4. Anemia, normocytic anemia of malignancy. RECOMMENDATIONS AND DISCUSSION: This 41-year-old gentleman presents with multiple complex issues. We will monitor the patient closely. Continue the current management and treatment. Otherwise, bronchodilators and intensive antibiotics. The patient was started on Levaquin as well as Solu-Medrol as well. I would also recommend Accu-Cheks with meals and at bedtime. DVT prophylaxis. I would also recommend Pulmonary and Critical Care and ICU consultation assessment. Otherwise the blood sugar will be closely monitored. Guarded prognosis because of multiple complex medical issues. Further recommendations to follow. Discussed with the family who understands. The patient is FULL CODE currently. MMODL / IJN: [id number] /
--- NOTE | 2016-10-31 11:45 | P.PN ---
Subjective 41 yo male patient was diagnosed having non-small cell lung cancer approximately 2 years ago and he has been treated at [facility] [place] by Dr. Heather Aguilar. The patient lives in [place] the patient was visiting his family in [facility] where over the past 24 hours he progressively became short of breath and he presented to the emergency department yesterday with acute respiratory failure. The patient has increased cough, increased shortness of breath, increased chest congestion, cough and not copious amount of thick purulent yellowish sputum. At the same time he had become significantly lethargic and weak. He had a low-grade temperature 100.3 and currently is afebrile. He presented emergency department and the patient was given a CAT scan of the chest that showed multifocal right lung pneumonia. At the same time there was evidence of chronic left upper lobe collapse with cavitation which probably is in agreement with this history of non-small cell lung cancer. There was also a large left adrenal mass which is probably best that it from an underlying lung cancer. No evidence of any pulmonary embolism. The patient got moved to the intensive care unit. Overnight he had episodes of hypotension and he was given a total of 2 and half liters of IV fluids and currently is on a 0.9 normal saline running at 100 mL an hour. The patient is also covered with broad-spectrum antibiotics and I further adjusted antibiotics to include a combination of Merrem, vancomycin, Levaquin and micafungin was also added due to concerns of fungal pneumonia. He is quite uncomfortable. Is complaining of frequent cough and chest congestion. His white cell count is at 9.8. He is on no pressors at this point. No change in mental status. Very much lethargic. His lactic acid level was at 4.6 and femoral admission dropped down to 1.2 In terms of history of lung cancer, the patient was diagnosed approximately 2 years ago. He probably had located vessel disease and he was initially treated with a combination of chemoradiation therapy. The patient subsequently progressed and developed metastases to his brain and he has undergone craniotomy and resection of cancerous lesions and subsequent brain radiation. He also developed adrenal metastases and spinal metastases with radiation therapy. He was given systemic chemotherapy and the exact schedule of chemotherapy is not clear to me at this point. He was also given oral chemotherapy including Opdivo. He is an ex-smoker. No history of emphysema or asthma. No history of DVT or pulmonary embolism. He apparently was doing well and he was in a good state of health prior to him presenting to our emergency department. He lives in a [place] area. He lives with his who is not in the area. He is nauseated. No diarrhea. No change in mental status at this point. On 10/31/2016 I'm seeing this patient in follow-up. Note that I have already spoken to the [facility] physicians in regards to transfer. The recommendations was to keep the patient now hospital knowing that there is no ongoing oncologic a show for now. The active issue is obviously an infectious pneumonia affecting the patient's right lung. For that reason the patient was kept here in our hospital. I spoke with Dr. Seven Amezcua at [facility]. On today's evaluation, the patient is slightly short of breath a chest x-ray findings are essentially stable with extensive consolidation of the right lung in addition to chronic left apical cavitary changes. The patient is afebrile the patient is hemodynamically stable. The patient is on a combination of antibiotics including Levaquin, Merrem and vancomycin. White cell count is not elevated. His hemoglobin is down to 5.6. Rest of the electrodes are all within normal limits. No change in mental status. He is on 43 of oxygen by nasal cannula and his saturations around 92%. No significant tachycardias heart rate has improved. He is maintaining his own pressure. Urine output is adequate. The patient is also on bronchodilators and systemic steroids. Objective - Vital Signs Vital signs: Vital Signs Temp 98.0 F 10/31/16 08:00 Pulse 89 10/31/16 11:00 Resp 12 10/31/16 11:00 BP 118/76 10/31/16 11:00 Pulse Ox 92 L 10/31/16 11:00 Intake & Output 10/30/16 10/31/16 10/31/16 18:59 06:59 18:59 Intake Total 1775 1600 1150 Output Total 1025 750 225 Balance 750 850 925 Weight 65.4 kg 70.9 kg 70.9 kg Intake: IV 1000 1100 500 Sodium Chloride 0.9% 1, 1000 1100 500 000 ml @ 100 mls/hr IV . Q10H [facility] Rx#:[id number] Intake, IV Titration 775 500 650 Amount Levofloxacin 750Mg-D5w 150 Pmx 750 mg In Dextrose/ Water 1 150ml.bag @ 100 mls/hr IVPB Q24H [facility] Rx#: [id number] Magnesium Sulfate-D5w Pmx 200 1 gm In Dextrose/Water 1 100ml.bag @ 100 mls/hr IVPB Q1H [facility] Rx#: [id number] Magnesium Sulfate-D5w Pmx 200 1 gm In Dextrose/Water 1 100ml.bag @ 100 mls/hr IVPB Q1H [facility] Rx#: [id number] Meropenem 1 gm In Sodium 100 100 Chloride 0.9% 100 ml @ 200 mls/hr IVPB Q8HR [facility] Rx#:[id number] Meropenem 2 gm In Sodium 100 Chloride 0.9% 100 ml @ 200 mls/hr IVPB Q8HR [facility] Rx#:[id number] Micafungin 100 mg In 100 Sodium Chloride 0.9% 100 ml @ 100 mls/hr IVPB DAILY [facility] Rx#:[id number] Potassium Chloride 20 meq 100 In Water For Injection 1 100ml.bag @ 50 mls/hr IVPB ONCE ONE Rx#: [id number] Vancomycin 1,250 mg In 375 250 250 Sodium Chloride 0.9% 250 ml @ 125 mls/hr IVPB Q8H [facility] Rx#:[id number] Output: Urine 1025 750 225 Other: Voiding Method Urinal Urinal - Exam Head exam was generally normal. There was no scleral icterus or corneal arcus. Mucous membranes were moist. Scars of previous craniotomy seen over the left forehead area.Neck was supple and without jugular venous distension, thyromegaly , or carotid bruits. Carotids were easily palpable bilaterally. There was no adenopathy. Lung sounds are diminished and there is diffuse and rhonchi and crackles involving the right lung compared to the left. There is also prolongation of expiratory phase of breathing and scattered expiratory wheezes throughout the lung fernandez bilaterally. Patient's breathing is less labored in terms of his breathing and is not using excessive muscle breathing.Cardiac exam revealed the PMI to be normally situated and sized. The rhythm was regular and no extrasystoles were noted during several minutes of auscultation. The first and second heart sounds were normal and physiologic splitting of the second heart sound was noted. There were no murmurs, rubs, clicks, or gallops.Abdominal exam revealed normal bowel sounds. The abdomen was soft, non- tender, and without masses, organomegaly, or appreciable enlargement of the abdominal aorta.Examination of the extremities revealed easily palpable radial, femoral and pedal pulses. There was no cyanosis, clubbing or edema. - Labs CBC & Chem 7: 10/31/16 05:05 10/31/16 05:05 Labs: Abnormal Lab Results - Last 24 Hours (Table) 10/31/16 10/31/16 Range/Units 05:05 05:05 RBC 3.22 L (4.30-5.90) m/uL Hgb 9.0 L (13.0-17.5) gm/dL Hct 28.3 L (39.0-53.0) % RDW 17.3 H (11.5-15.5) % Lymphocytes # 0.1 L (1.0-4.8) k/uL Sodium 134 L (137-145) mmol/L Potassium 3.4 L (3.5-5.1) mmol/L Creatinine 0.40 L (0.66-1.25) mg/dL Glucose 100 H (74-99) mg/dL Calcium 7.9 L (8.4-10.2) mg/dL Microbiology - Last 24 Hours (Table) 10/30/16 00:35 Blood Culture - Preliminary Blood No Growth after 24 hours 10/29/16 20:50 Blood Culture - Preliminary Blood No Growth after 24 hours 10/30/16 08:30 Urine Culture - Preliminary Urine,Clean Catch Assessment and Plan Plan: Assessment 1 right lung pneumonia. The patient has extensive multi-lobar/multifocal consolidation of the right lung which is most likely a presentation of an underlying acute pneumonia. There is areas of consolidation and groundglass changes more predominant in the upper lobes and in the mud lobes. The patient also has chronic cavitary changes in the left upper lobe which probably is chronic than acute. Rule out routine community acquired pathogens. Rule out gram-negative and staphylococcal pneumonia. Rule out fungal pneumonia especially with a chronic cavitary changes on the left. The patient was apparently hospitalized on multiple occasions and the possibility of hospital- acquired pathogen cannot be completely excluded. On 10/31/2016, the patient looks slightly more stable compared to yesterday. His improved and is less labored in terms of his breathing. Nevertheless the chest x-ray still showing extensive consolidation of the right lung and was still awaiting further sputum and blood cultures. Meanwhile the patient is still covered with the same broad-spectrum antibiotic coverage. Hemodynamically stable. 2 acute hypoxic respiratory failure secondary to above 3 non-small cell lung cancer, metastatic with metastases to his brain, left adrenal gland and spine. The exact details of the treatment was offered to this patient is not available however the patient admits of taking chemoradiation therapy to his chest and subsequent palliative radiation therapy to metastatic foci. 4 anemia, likely chronic 5 lactic acidosis improving and the lactic acid level is down to 1.2 Plan Keep the patient intensive care unit. The patient is critically ill. She is same antibiotic coverage. Continue bronchi dilators. Continue steroids. Daily chest x-rays. Lovenox for DVT prophylaxis. Awaiting sputum Gram stain and culture. Awaiting blood culture. Consult infectious disease, Sayed, we 'll continue to follow. I expect him to stay in ICU for another 24 hours and we 'll move him out of the ICU by tomorrow. There is good progress since yesterday. We'll follow. Discussed the case with the sister, daughter and .
[2016-10-31] MEDS ORDERED: VANCOMYCIN TROUGH DUE 1 EACH MISC MISCELLANE ONE (13:00)
--- NOTE | 2016-10-31 14:15 | PN ---
PROGRESS NOTE DATE OF SERVICE: 10/31/2016 He is more awake and alert. He is less short of breath and is taking deeper breaths overall. On physical examination, his respiratory rate has come down to 24. Blood pressure 125/82, heart rate of 102, O2 saturation on 4 L by nasal cannula is 93%. HEENT reveals pupils that are equal. Chest reveals fair air entry, prolonged expiration. Bilateral expiratory wheezes. Scattered rhonchi. Cardiovascular system reveals an S1, S2. Abdomen is soft. There is no pedal edema. IMPRESSION: 1. Right-sided pneumonia. 2. Immunocompromised state. 3. Lung cancer with metastatic disease. 4. Sepsis with septic shock. Continue GI and DVT prophylaxis. Continue with IV antibiotics and hopefully will be able to narrow his antibiotics in the next day or 2 as the sputum specimen is pending. Blood cultures have been negative so far. Would add inhaled steroids in the hope of decreasing his need for systemic steroids. He was not accepted for transfer to [facility] in [place]. We will watch him closely during his hospital stay over here. We care and appreciate the opportunity to participate in his care. MMODL / IJN: [id number] /
[2016-10-31] MEDS: LORazepam 1 MG TAB PO PRN ×2 (15:36→23:36)
[2016-10-31] MEDS ORDERED: FUROSEMIDE 10 MG/ML 2 ML VIAL IV ONE (17:05)
[2016-10-31] MEDS ORDERED: Potassium Replacement Protocol 1 EACH MISC MISCELLANE PRN (19:52)
[2016-10-31] MEDS ORDERED: POTASSIUM CHLORIDE 10 MEQ in WATER FOR INJECTION 1 100ML.BAG IVPB ONE (19:52)
[2016-10-31] MEDS: BUDESONIDE 0.5 MG/2 ML NEBU INHALATION SCH (20:08)
[2016-10-31] MEDS: POTASSIUM CHLORIDE ER 20 MEQ TAB.ER PO SCH ×3 (20:54→23:36)
[2016-10-31] MEDS: LEVOFLOXACIN 750MG-D5W PMX 750 MG in DEXTROSE/WATER 1 150ML.BAG IVPB SCH (20:56)
[2016-10-31] MEDS: FAMOTIDINE 20 MG TAB PO SCH (21:15)
--- NOTE | 2016-10-31 22:24 | PN ---
PROGRESS NOTE DATE OF SERVICE: 10/31/2016 INTERVAL HISTORY: This 41-year-old gentleman who was admitted with acute right lung pneumonia also had acute hypoxic respiratory failure. The patient is improving significantly. No chest pain. No palpitations. Dr. Martinez is following the patient. Patient on broad IV antibiotics. Patient had history of extensive malignancy recently. Pulmonary is also following the patient closely. Dr. Martinez talked to the patient's primary physician as well. PAST MEDICAL HISTORY: Patient's past medical history reviewed. REVIEW OF SYSTEMS: Cardio system: No angina or palpitations. Respiratory: As mentioned earlier. GI: As mentioned earlier. no dysuria or retention. Central nervous system: No focal deficits. MEDICATIONS: Current medications are reviewed and include: 1. DuoNeb q.i.d. and p.r.n. 2. Pulmicort 0.5 b.i.d. 3. Lovenox 40 mg subcu daily. 4. Pepcid 20 mg b.i.d. 5. Dilaudid 1 mg q.3 hours p.r.n. 6. Motrin. 7. Levaquin 750 daily. 8. Ativan 1 mg b.i.d. p.r.n. 10.Solu-Medrol 60 IV q.6h. 11.Narcan 0.2. 12.Zofran 4 mg q6h p.r.n. 13.Oxy IR 30 mg q.i.d. p.r.n. PHYSICAL EXAMINATION: Patient is alert and oriented times three. Pulse 100, blood pressure is 110/71 , respiratory 20, temperature normal. Pulse ox 89% on 5 L. HEENT: Conjunctivae normal. Oral mucosa moist. Neck is no jugular venous distention. No carotid bruit. No lymph node enlargement. Thyroid not enlarged. Cardiovascular is S1, S2. Respiratory : Breath sounds diminished at the bases. Bilateral scattered rhonchi and crackles. Abdomen is soft, nontender, no masses palpable. Central nervous system: Diffusely weak. LABORATORY DATA: WBC 5.6, hemoglobin 10, sodium 134, potassium 3.4. ASSESSMENT: 1. Acute right lung pneumonia possibly gram-negative with acute hypoxic respiratory failure. 2. Non-small cell lung cancer status post chemotherapy. 3. History of metastatic brain lesions. 4. Anemia normocytic anemia of malignancy. RECOMMENDATIONS AND DISCUSSION: Continue current medications. Continue symptomatic treatment. Continue broad spectrum IV antibiotics. Bronchodilators. Monitor lytes closely. Closely follow with Dr. Martinez. Follow the cultures. Guarded prognosis because of multiple complex medical issues. Further recommendations to follow. MMODL / IJN: [id number] / MTDD
[2016-11-01] MEDS: SODIUM CHLORIDE 0.9% 1,000 ML IV SCH ×2 (03:27→16:38)
[2016-11-01] MEDS: HYDROmorphone 1 MG/ML 1 ML SYRINGE IVP PRN ×4 (03:27→18:24)
[2016-11-01 04:29] LABS: Anisocytosis Slight; Basophils % (A) 0 %; CH 26.8; CHCM 31.1; Eosinophils % (A) 0 %; HDW 2.74; HGB 8.9 gm/dL (13.0-17.5); Hypochromasia Slight; Luc # (Auto) 0.06; Luc % (Auto) 1; Lymphocytes # (A) 0.1 k/uL (1.0-4.8); Lymphocytes % (A) 1 %; MCH 27.6 pg (25.0-35.0); MCV 86.4 fL (80.0-100.0); Monocytes # (A) 0.2 k/uL (0-1.0); Monocytes % (A) 3 %; Neutrophils # (A) 7.9 k/uL (1.3-7.7); Neutrophils % (A) 95 %; RBC 3.24 m/uL (4.30-5.90); RDW 16.8 % (11.5-15.5); WBC 8.3 k/uL (3.8-10.6)
[2016-11-01 04:40] LABS: Anion Gap 7 mmol/L; Blood Urea Nitrogen 11 mg/dL (9-20); Calcium 7.7 mg/dL (8.4-10.2); Carbon Dioxide 28 mmol/L (22-30); Chloride 100 mmol/L (98-107); Glucose 104 mg/dL (74-99); Magnesium 1.9 mg/dL (1.6-2.3); Non-African American GFR(MDRD) >60 (>60 ml/min/1.73 sqM); Phosphorous 2.6 mg/dL (2.5-4.5); Potassium 3.3 mmol/L (3.5-5.1); Sodium 135 mmol/L (137-145)
[2016-11-01] MEDS ORDERED: Potassium Replacement Protocol 1 EACH MISC MISCELLANE PRN ×2 (05:03→19:44)
[2016-11-01] MEDS ORDERED: Magnesium Replacement Protocol 1 EACH MISC MISCELLANE PRN (05:04)
[2016-11-01] MEDS: POTASSIUM CHLORIDE ER 20 MEQ TAB.ER PO SCH ×6 (05:39→16:36)
[2016-11-01] MEDS: MAGNESIUM SULFATE-D5W PMX 1 GM in DEXTROSE/WATER 1 100ML.BAG IVPB SCH ×2 (05:41→06:47)
[2016-11-01] MEDS: VANCOMYCIN 1,250 MG in SODIUM CHLORIDE 0.9% 250 ML IVPB SCH ×3 (05:41→22:05)
[2016-11-01] MEDS: methylPREDNISolone SOD SUCCI 125 MG/2 ML VIAL IV SCH ×3 (05:42→18:25)
--- NOTE | 2016-11-01 07:04 | XR ---
EXAMINATION TYPE: XR chest 1V DATE OF EXAM: 11/01/2016 CLINICAL HISTORY: Difficulty breathing and pneumonia progress study. TECHNIQUE: Single AP portable upright view of the chest is obtained. COMPARISON: Chest x-ray from one day earlier and older studies October 29, 2016. FINDINGS: There is left apical pleural thickening and cavitation with upper lung scarring redemonstr ated. There is background emphysematous change with left basilar scarring redemonstrated. There is stable right-sided internal jugular Mediport catheter. There is diffuse right lung opacity w ith more prominent consolidation in the right midlung silhouetting right heart border redemonstrated. Elevated right hemidiaphragm and right-sided volume loss with mediastinal shift is redemonstrated. T here is right apical pleural thickening and scarring. Cardiac silhouette size is within normal limits. Osseous structures are intact. IMPRESSION: Overall stable findings, chronic changes with diffuse right lung consolidation and/or i nfiltrates all redemonstrated.
[2016-11-01] MEDS: MEROPENEM 1 GM in SODIUM CHLORIDE 0.9% 100 ML IVPB SCH ×2 (08:03→16:36)
[2016-11-01] MEDS: ENOXAPARIN 40 MG/0.4 ML SYRINGE SQ SCH (08:03)
[2016-11-01] MEDS: FAMOTIDINE 20 MG TAB PO SCH ×2 (08:03→20:25)
[2016-11-01] MEDS: BUDESONIDE 0.5 MG/2 ML NEBU INHALATION SCH ×2 (08:19→20:05)
[2016-11-01] MEDS: IPRATROPIUM-ALBUTEROL 3 ML NEB INHALATION SCH ×4 (08:19→20:05)
[2016-11-01] MEDS ORDERED: FUROSEMIDE 10 MG/ML 2 ML VIAL IV ONE (08:53)
--- NOTE | 2016-11-01 08:57 | P.PN ---
Subjective 41 yo male patient was diagnosed having non-small cell lung cancer approximately 2 years ago and he has been treated at [facility] [place] by Dr. Heather Aguilar. The patient lives in [place] the patient was visiting his family in [facility] where over the past 24 hours he progressively became short of breath and he presented to the emergency department yesterday with acute respiratory failure. The patient has increased cough, increased shortness of breath, increased chest congestion, cough and not copious amount of thick purulent yellowish sputum. At the same time he had become significantly lethargic and weak. He had a low-grade temperature 100.3 and currently is afebrile. He presented emergency department and the patient was given a CAT scan of the chest that showed multifocal right lung pneumonia. At the same time there was evidence of chronic left upper lobe collapse with cavitation which probably is in agreement with this history of non-small cell lung cancer. There was also a large left adrenal mass which is probably best that it from an underlying lung cancer. No evidence of any pulmonary embolism. The patient got moved to the intensive care unit. Overnight he had episodes of hypotension and he was given a total of 2 and half liters of IV fluids and currently is on a 0.9 normal saline running at 100 mL an hour. The patient is also covered with broad-spectrum antibiotics and I further adjusted antibiotics to include a combination of Merrem, vancomycin, Levaquin and micafungin was also added due to concerns of fungal pneumonia. He is quite uncomfortable. Is complaining of frequent cough and chest congestion. His white cell count is at 9.8. He is on no pressors at this point. No change in mental status. Very much lethargic. His lactic acid level was at 4.6 and femoral admission dropped down to 1.2 In terms of history of lung cancer, the patient was diagnosed approximately 2 years ago. He probably had located vessel disease and he was initially treated with a combination of chemoradiation therapy. The patient subsequently progressed and developed metastases to his brain and he has undergone craniotomy and resection of cancerous lesions and subsequent brain radiation. He also developed adrenal metastases and spinal metastases with radiation therapy. He was given systemic chemotherapy and the exact schedule of chemotherapy is not clear to me at this point. He was also given oral chemotherapy including Opdivo. He is an ex-smoker. No history of emphysema or asthma. No history of DVT or pulmonary embolism. He apparently was doing well and he was in a good state of health prior to him presenting to our emergency department. He lives in a [place] area. He lives with his who is not in the area. He is nauseated. No diarrhea. No change in mental status at this point. On 10/31/2016 I'm seeing this patient in follow-up. Note that I have already spoken to the [facility] physicians in regards to transfer. The recommendations was to keep the patient now hospital knowing that there is no ongoing oncologic a show for now. The active issue is obviously an infectious pneumonia affecting the patient's right lung. For that reason the patient was kept here in our hospital. I spoke with Dr. Seven Amezcua at [facility]. On today's evaluation, the patient is slightly short of breath a chest x-ray findings are essentially stable with extensive consolidation of the right lung in addition to chronic left apical cavitary changes. The patient is afebrile the patient is hemodynamically stable. The patient is on a combination of antibiotics including Levaquin, Merrem and vancomycin. White cell count is not elevated. His hemoglobin is down to 5.6. Rest of the electrodes are all within normal limits. No change in mental status. He is on 43 of oxygen by nasal cannula and his saturations around 92%. No significant tachycardias heart rate has improved. He is maintaining his own pressure. Urine output is adequate. The patient is also on bronchodilators and systemic steroids. On 11/01/2016 I'm seeing this patient in follow-up. The patient is acute hypoxic respiratory failure. Yesterday the patient became a bit more short of breath and hypoxic and he had to be placed on a 40% Ventimask. His pulse ox is around 91-92% on 40% Ventimask. Chest x-ray shows stable consolidation of the entire right lung. The patient remains on broad-spectrum antibiotics and he is on a combination of Merrem him on vancomycin and Levaquin. The patient had a sputum sample sent and showed some gram-positive cocci along with some budding yeasts. He is on IV fluids with normal state rate of 100 mL an hour. Receiving IV Solu-Medrol. He received a dose of Lasix and diuresed well. Mentally he is alert and awake and there is no confusion. He is profoundly weak. He had some difficulties getting up on a chair and he stayed in bed all day. Oral intake is diminished. Hemodynamically stable. Objective - Vital Signs Vital signs: Vital Signs Temp 98.3 F 11/01/16 08:00 Pulse 107 H 11/01/16 08:41 Resp 19 11/01/16 08:00 BP 118/78 11/01/16 08:00 Pulse Ox 93 L 11/01/16 08:00 Intake & Output 10/31/16 11/01/16 11/01/16 18:59 06:59 18:59 Intake Total 2100 2075 525 Output Total 1375 1500 750 Balance 725 575 -225 Weight 70.9 kg 72.6 kg Intake: IV 1200 2075 425 Levofloxacin 750Mg-D5w 200 Pmx 750 mg In Dextrose/ Water 1 150ml.bag @ 100 mls/hr IVPB Q24H [facility] Rx#: [id number] Magnesium Sulfate-D5w Pmx 100 100 1 gm In Dextrose/Water 1 100ml.bag @ 100 mls/hr IVPB Q1H [facility] Rx#: [id number] Potassium Chloride 10 meq 200 In Water For Injection 1 100ml.bag @ 100 mls/hr IVPB ONCE ONE Rx#: [id number] Sodium Chloride 0.9% 1, 1200 1200 200 000 ml @ 100 mls/hr IV . Q10H [facility] Rx#:[id number] Vancomycin 1,250 mg In 375 125 Sodium Chloride 0.9% 250 ml @ 125 mls/hr IVPB Q8H [facility] Rx#:[id number] Intake, IV Titration 900 100 Amount Magnesium Sulfate-D5w Pmx 200 1 gm In Dextrose/Water 1 100ml.bag @ 100 mls/hr IVPB Q1H [facility] Rx#: [id number] Meropenem 1 gm In Sodium 100 100 Chloride 0.9% 100 ml @ 200 mls/hr IVPB Q8HR [facility] Rx#:[id number] Potassium Chloride 20 meq 100 In Water For Injection 1 100ml.bag @ 50 mls/hr IVPB ONCE ONE Rx#: [id number] Vancomycin 1,250 mg In 500 Sodium Chloride 0.9% 250 ml @ 125 mls/hr IVPB Q8H [facility] Rx#:[id number] Output: Urine 1375 1500 750 Other: Voiding Method Urinal Urinal - Exam Head exam was generally normal. There was no scleral icterus or corneal arcus. Mucous membranes were moist. Scars of previous craniotomy seen over the left forehead area.Neck was supple and without jugular venous distension, thyromegaly , or carotid bruits. Carotids were easily palpable bilaterally. There was no adenopathy. Lung sounds are diminished and there is diffuse and rhonchi and crackles involving the right lung compared to the left. There is also prolongation of expiratory phase of breathing and scattered expiratory wheezes throughout the lung fernandez bilaterally. Patient's breathing is less labored in terms of his breathing and is not using excessive muscle breathing.Cardiac exam revealed the PMI to be normally situated and sized. The rhythm was regular and no extrasystoles were noted during several minutes of auscultation. The first and second heart sounds were normal and physiologic splitting of the second heart sound was noted. There were no murmurs, rubs, clicks, or gallops.Abdominal exam revealed normal bowel sounds. The abdomen was soft, non- tender, and without masses, organomegaly, or appreciable enlargement of the abdominal aorta.Examination of the extremities revealed easily palpable radial, femoral and pedal pulses. There was no cyanosis, clubbing or edema. - Labs CBC & Chem 7: 11/01/16 04:15 11/01/16 04:15 Labs: Abnormal Lab Results - Last 24 Hours (Table) 10/31/16 11/01/16 11/01/16 Range/Units 19:10 04:15 04:15 RBC 3.24 L (4.30-5.90) m/uL Hgb 8.9 L (13.0-17.5) gm/dL Hct 28.0 L (39.0-53.0) % RDW 16.8 H (11.5-15.5) % Neutrophils # 7.9 H (1.3-7.7) k/uL Lymphocytes # 0.1 L (1.0-4.8) k/uL Sodium 135 L (137-145) mmol/L Potassium 2.7 L* 3.3 L (3.5-5.1) mmol/L Creatinine 0.40 L (0.66-1.25) mg/dL Glucose 104 H (74-99) mg/dL Calcium 7.7 L (8.4-10.2) mg/dL Microbiology - Last 24 Hours (Table) 10/30/16 00:35 Blood Culture - Preliminary Blood No Growth after 48 hours 10/29/16 20:50 Blood Culture - Preliminary Blood No Growth after 48 hours 10/30/16 12:55 Gram Stain - Preliminary Sputum Sputum Culture - Preliminary 10/30/16 08:30 Urine Culture - Final Urine,Clean Catch Assessment and Plan Plan: Assessment 1 right lung pneumonia. The patient has extensive multi-lobar/multifocal consolidation of the right lung which is most likely a presentation of an underlying acute pneumonia. There is areas of consolidation and groundglass changes more predominant in the upper lobes and in the mud lobes. The patient also has chronic cavitary changes in the left upper lobe which probably is chronic than acute. Rule out routine community acquired pathogens. Rule out gram-negative and staphylococcal pneumonia. Rule out fungal pneumonia especially with a chronic cavitary changes on the left. The patient was apparently hospitalized on multiple occasions and the possibility of hospital- acquired pathogen cannot be completely excluded. On 10/31/2016, the patient looks slightly more stable compared to yesterday. His improved and is less labored in terms of his breathing. Nevertheless the chest x-ray still showing extensive consolidation of the right lung and was still awaiting further sputum and blood cultures. Meanwhile the patient is still covered with the same broad-spectrum antibiotic coverage. Hemodynamically stable. On 11/01/2016, the patient is still on 40% Ventimask. Chest x-ray findings are essentially stable for now. Cultures had not been yielded for any positive microbial growth. Legionella urine antigen has been sent. 2 acute hypoxic respiratory failure secondary to above 3 non-small cell lung cancer, metastatic with metastases to his brain, left adrenal gland and spine. The exact details of the treatment was offered to this patient is not available however the patient admits of taking chemoradiation therapy to his chest and subsequent palliative radiation therapy to metastatic foci. 4 anemia, likely chronic 5 lactic acidosis improving and the lactic acid level is down to 1.2 Plan Today same antibiotic coverage. Awaiting sputum Gram stain and culture. Awaiting blood culture. Awaiting Legionella urine antigen. Cut down the IV fluids to 50 mL an hour. Give the patient dose of Lasix 20 mg IV push. Wean down the FiO2 as tolerated. Advance diet. Try to set him up on a chair. Replace the potassium. DVT and GI prophylaxis. ID is on the case. We'll continue to follow make further recommendations based on his progress. Condition is critical still in the patient will be kept here in the ICU.
--- NOTE | 2016-11-01 12:16 | PN ---
PROGRESS NOTE DATE OF SERVICE: 10/31/2016 REASON FOR FOLLOW UP: Pneumonia. INTERVAL HISTORY: The patient is afebrile. He is more awake, alert today. He is breathing comfortably. Did have some chest pain and cough but nonproductive. No nausea, vomiting, or abdominal pain. No diarrhea. EXAMINATION: Blood pressure is 124/52 with a pulse of 98, temperature 98. He is 93% on room air. General description is a middle-aged male, lying in bed, in no distress. RESPIRATORY SYSTEM: Unlabored breathing. Coarse breath sounds bilaterally. HEART: S1, S2. Regular rate and rhythm. ABDOMEN: Soft, no tenderness. LAB: Hemoglobin 9, white count 5.6, BUN of 10, creatinine 0.40. Blood culture so far negative. Sputum culture is pending. IMPRESSION: Patient admitted to the hospital with difficulty breathing. The patient did have metastatic lung cancer with a component of pneumonia likely nosocomial pathogen. Patient is currently in covered with broad spectrum antibiotic in the form of meropenem and vancomycin and that will be continued. Awaiting for his sputum cultures to be finalized. Family present at bedside. Their questions were answered. MMODL / IJN: [id number] /
[2016-11-01] MEDS: LORazepam 1 MG TAB PO PRN (15:15)
--- NOTE | 2016-11-01 18:04 | PN ---
PROGRESS NOTE DATE OF SERVICE: 11/01/16 He was seen again on October2016. He is sleepy but arousable. He is not in respiratory distress. His O2 sats had been going down. He subsequently was placed on a Venti mask. PHYSICAL EXAMINATION: On physical examination, he is not using accessory muscles of respiration. His blood pressure is 112/74, respiratory rate 21, pulse rate of 85, O2 saturation on 45% Venti mask is 95%. HEENT reveals pupils to be equal. Chest reveals fair air entry. Wheeze only on forced expiration. Bronchovesicular breath sounds on the right. Cardiovascular system was S1, S2. Abdomen is soft. There is no pedal edema. White count is 8.3, hemoglobin of 8.9, sodium 135, potassium 3.3, chloride 100, bicarb 28, BUN 11, creatinine of 0.4. I's and O's over the last 24 hours is showing the patient to be a positive 1300. Prior to that he was a positive 1600 and today is -625. Microbiological cultures in the form of sputum growing Deandra albicans. No other bacteria are growing. IMPRESSION: At this time. 1. Right-sided pneumonia most likely secondary to aspiration. 2. Metastatic lung cancer status post chemotherapy. 3. Immunocompromised state. 4. Anemia. 5. Hypokalemia. 6. Medical debility and state. 7. Sepsis with septic shock. At this point in time, continue antibiotics per ID. Optimize fluid status. Continue steroids to decrease inflammation in the airway. Continue bronchodilators, GI and DVT prophylaxis. His prognosis at this time is guarded but he is slowly improving. There is likely shunting because of consolidative changes on the right side resulting in hypoxemia. MMODL / IJN: [id number] /
[2016-11-01] MEDS ORDERED: POTASSIUM CHLORIDE ER 20 MEQ TAB.ER PO ONE (20:00)
[2016-11-01] MEDS: LEVOFLOXACIN 750MG-D5W PMX 750 MG in DEXTROSE/WATER 1 150ML.BAG IVPB SCH (20:25)
--- NOTE | 2016-11-01 22:49 | PN ---
PROGRESS NOTE DATE OF SERVICE: 11/01/2016 This is a progress note. INTERVAL HISTORY: This 41-year-old gentleman who was admitted with acute right lung pneumonia also had acute hypoxic respiratory failure. The patient is currently on Ventimask and the patient is on broad-spectrum IV antibiotics. The patient also had extensive history of malignancy also recently. The most recent chest x-ray which was done today and reviewed and showed overall stable findings at this time. Patient continues to be hypoxic. Sensorium is definitely improved from the day of admission. REVIEW OF SYSTEMS: Cardio system: No angina or palpitations. Respiratory: As mentioned earlier. Gastrointestinal: No nausea or vomiting. : No dysuria. Central nervous system: As mentioned earlier. CURRENT MEDICATIONS: Reviewed and include: 1. DuoNeb q.i.d. and p.r.n. 2. Pulmicort 0.5 b.i.d. 3. Lovenox 40 mg subcu daily. 4. Pepcid 20 mg b.i.d. 5. Dilaudid 1 mg q2h p.r.n. 6. Motrin. 7. Levaquin 750 daily. 8. Meropenem 1 g IV q.8h. 9. Solu-Medrol 60 IV q.6h. 10.Replacement protocol. 11.Oxy IR. 12.Vancomycin. PHYSICAL EXAM: Patient is alert, oriented times three. Pulse 105, blood pressure 101/65, respiration 43, temperature is normal, pulse ox 84% on 10 L high-flow and 94% on 40% Venti mask. HEENT: Conjunctivae normal. Oral mucosa moist. NECK: No jugular venous distention. No carotid bruit. No thyroid enlargement. CARDIOVASCULAR: S1, S2 muffled. No S3, no S4. RESPIRATORY: Breath sounds diminished at the bases. Breathing efforts are markedly increased. Bilateral scattered rhonchi and crackles. Right more than the left. Abdomen is soft, nontender. No mass palpable. Legs: No edema. No swelling. Central nervous system: Higher functions as mentioned earlier. Moves all four extremities. No focal deficits. Lymphatics: No lymph nodes palpable in the neck, axillae or groin. SKIN: No ulcer, rash or bleeding. LABORATORY DATA: WBC 8.8. Hemoglobin is 8.9, potassium 2.7, 3.3, and 3, sodium 135. ASSESSMENT: 1. Acute right lower lobe pneumonia possibly gram-negative pneumonia with sepsis and acute hypoxic respiratory failure. 2. Non-small cell lung cancer status post chemotherapy. 3. History of metastatic brain lesions. 4. Anemia normocytic anemia of malignancy. RECOMMENDATIONS AND DISCUSSION: Continue to current medications. Continue to monitor. Symptomatic treatment. Continue with broad-spectrum antibiotics. Repeat lytes. We will continue the rest of medical regimen including DVT prophylaxis. Guarded prognosis because of multiple complex medical issues. Further recommendations to follow. MMODL / IJN: [id number] /
[2016-11-02] MEDS: MEROPENEM 1 GM in SODIUM CHLORIDE 0.9% 100 ML IVPB SCH ×3 (00:01→17:20)
[2016-11-02] MEDS: HYDROmorphone 1 MG/ML 1 ML SYRINGE IVP PRN ×4 (00:01→18:26)
[2016-11-02] MEDS: methylPREDNISolone SOD SUCCI 125 MG/2 ML VIAL IV SCH ×4 (00:02→18:23)
[2016-11-02] MEDS: LORazepam 1 MG TAB PO PRN ×2 (02:28→13:20)
[2016-11-02 04:28] LABS: Anisocytosis Slight; Basophils % (A) 0 %; CHCM 32.5; Eosinophils % (A) 0 %; HCT 29.3 % (39.0-53.0); HDW 2.75; HGB 9.2 gm/dL (13.0-17.5); Luc # (Auto) 0.04; Luc % (Auto) 1; Lymphocytes # (A) 0.1 k/uL (1.0-4.8); Lymphocytes % (A) 2 %; MCH 27.2 pg (25.0-35.0); MCHC 31.5 g/dL (31.0-37.0); MCV 86.4 fL (80.0-100.0); Mean Platelet Volume 7.5; Monocytes # (A) 0.2 k/uL (0-1.0); Monocytes % (A) 4 %; Neutrophils # (A) 5.9 k/uL (1.3-7.7); Neutrophils % (A) 94 %; RBC 3.39 m/uL (4.30-5.90); RDW 17.9 % (11.5-15.5); WBC 6.3 k/uL (3.8-10.6); WBC (Perox) 6.85
[2016-11-02 04:50] LABS: Anion Gap 5 mmol/L; Blood Urea Nitrogen 15 mg/dL (9-20); Calcium 8.1 mg/dL (8.4-10.2); Carbon Dioxide 27 mmol/L (22-30); Chloride 102 mmol/L (98-107); Glucose 118 mg/dL (74-99); Magnesium 2.1 mg/dL (1.6-2.3); Non-African American GFR(MDRD) >60 (>60 ml/min/1.73 sqM); Phosphorous 2.3 mg/dL (2.5-4.5); Potassium 4.4 mmol/L (3.5-5.1); Sodium 134 mmol/L (137-145)
[2016-11-02] MEDS: VANCOMYCIN 1,250 MG in SODIUM CHLORIDE 0.9% 250 ML IVPB SCH ×3 (05:09→22:23)
[2016-11-02] MEDS: IPRATROPIUM-ALBUTEROL 3 ML NEB INHALATION SCH ×4 (08:15→20:26)
[2016-11-02] MEDS: BUDESONIDE 0.5 MG/2 ML NEBU INHALATION SCH ×2 (08:15→20:26)
--- NOTE | 2016-11-02 08:26 | XR ---
EXAMINATION TYPE: XR chest 1V DATE OF EXAM: 11/02/2016 COMPARISON: 11/01/2016 INDICATION: Pneumonia TECHNIQUE: Single frontal view of the chest is obtained. FINDINGS: The heart size is normal. The pulmonary vasculature is normal. There is a large consolidation to the right lower lung field. Milder infiltrate in the right upper sinai ng field. Port is present on the right with the tip in the superior vena cava region. Findings are similar to prior study. Some minimal left basilar atelectasis has resolved. IMPRESSION: 1. Stable consolidation right lung which can be compatible with pneumonia in the proper clinical sett ing.
[2016-11-02] MEDS: SODIUM CHLORIDE 0.9% 1,000 ML IV SCH (08:44)
[2016-11-02] MEDS: ENOXAPARIN 40 MG/0.4 ML SYRINGE SQ SCH (08:44)
[2016-11-02] MEDS: FAMOTIDINE 20 MG TAB PO SCH ×2 (08:45→20:46)
[2016-11-02] MEDS: CHLORPHEN-HYDROcod 8-10mg/5ml 5 ML ORAL.SYRG PO SCH ×2 (09:55→20:46)
--- NOTE | 2016-11-02 10:32 | PN ---
PROGRESS NOTE DATE OF SERVICE: 11/01/2016 REASON FOR FOLLOWUP: Pneumonia. INTERVAL HISTORY: The patient is afebrile. He did have slight worsening of his respiratory status last night; however, slight improvement this morning. The patient did have some chest pain on the left side. He did have the cough but not bringing up a significant amount of sputum. No nausea, no vomiting and no diarrhea. PHYSICAL EXAMINATION: Blood pressure is 114/79 with a pulse of 77, temperature 98.7, he is 95% on VentiMask. General description is middle-aged male, lying in bed, in no distress. RESPIRATORY SYSTEM: Unlabored breathing, coarse breath sounds bilaterally. HEART: S1, S2. Regular rate and rhythm. ABDOMEN: Soft, no tenderness. LAB: Hemoglobin 8.8, white count 8.3, BUN of 11, creatinine 0.40. Sputum showing Deandra albicans. Blood culture so far negative. DIAGNOSTIC IMPRESSION AND PLAN: Patient admitted to the hospital with diffuse pneumonia on the right side and the patient did have stage IV lung cancer. Patient currently reports on antibiotic while waiting for the culture to finalize. Continue supportive care. Family present at bedside. Their questions were answered. MMODL / IJN: [id number] /
--- NOTE | 2016-11-02 11:51 | P.PN ---
Subjective Principal diagnosis: Extensive right lung pneumonia, history of underlying bronchogenic carcinoma 41 yo male patient was diagnosed having non-small cell lung cancer approximately 2 years ago and he has been treated at [facility] [place] by Dr. Heather Aguilar. The patient lives in [place] the patient was visiting his family in [facility] where over the past 24 hours he progressively became short of breath and he presented to the emergency department yesterday with acute respiratory failure. The patient has increased cough, increased shortness of breath, increased chest congestion, cough and not copious amount of thick purulent yellowish sputum. At the same time he had become significantly lethargic and weak. He had a low-grade temperature 100.3 and currently is afebrile. He presented emergency department and the patient was given a CAT scan of the chest that showed multifocal right lung pneumonia. At the same time there was evidence of chronic left upper lobe collapse with cavitation which probably is in agreement with this history of non-small cell lung cancer. There was also a large left adrenal mass which is probably best that it from an underlying lung cancer. No evidence of any pulmonary embolism. The patient got moved to the intensive care unit. Overnight he had episodes of hypotension and he was given a total of 2 and half liters of IV fluids and currently is on a 0.9 normal saline running at 100 mL an hour. The patient is also covered with broad-spectrum antibiotics and I further adjusted antibiotics to include a combination of Merrem, vancomycin, Levaquin and micafungin was also added due to concerns of fungal pneumonia. He is quite uncomfortable. Is complaining of frequent cough and chest congestion. His white cell count is at 9.8. He is on no pressors at this point. No change in mental status. Very much lethargic. His lactic acid level was at 4.6 and femoral admission dropped down to 1.2 In terms of history of lung cancer, the patient was diagnosed approximately 2 years ago. He probably had located vessel disease and he was initially treated with a combination of chemoradiation therapy. The patient subsequently progressed and developed metastases to his brain and he has undergone craniotomy and resection of cancerous lesions and subsequent brain radiation. He also developed adrenal metastases and spinal metastases with radiation therapy. He was given systemic chemotherapy and the exact schedule of chemotherapy is not clear to me at this point. He was also given oral chemotherapy including Opdivo. He is an ex-smoker. No history of emphysema or asthma. No history of DVT or pulmonary embolism. He apparently was doing well and he was in a good state of health prior to him presenting to our emergency department. He lives in a [place] area. He lives with his who is not in the area. He is nauseated. No diarrhea. No change in mental status at this point. On 10/31/2016 I'm seeing this patient in follow-up. Note that I have already spoken to the [facility] physicians in regards to transfer. The recommendations was to keep the patient now hospital knowing that there is no ongoing oncologic a show for now. The active issue is obviously an infectious pneumonia affecting the patient's right lung. For that reason the patient was kept here in our hospital. I spoke with Dr. Seven Amezcua at [facility]. On today's evaluation, the patient is slightly short of breath a chest x-ray findings are essentially stable with extensive consolidation of the right lung in addition to chronic left apical cavitary changes. The patient is afebrile the patient is hemodynamically stable. The patient is on a combination of antibiotics including Levaquin, Merrem and vancomycin. White cell count is not elevated. His hemoglobin is down to 5.6. Rest of the electrodes are all within normal limits. No change in mental status. He is on 43 of oxygen by nasal cannula and his saturations around 92%. No significant tachycardias heart rate has improved. He is maintaining his own pressure. Urine output is adequate. The patient is also on bronchodilators and systemic steroids. On 11/01/2016 I'm seeing this patient in follow-up. The patient is acute hypoxic respiratory failure. Yesterday the patient became a bit more short of breath and hypoxic and he had to be placed on a 40% Ventimask. His pulse ox is around 91-92% on 40% Ventimask. Chest x-ray shows stable consolidation of the entire right lung. The patient remains on broad-spectrum antibiotics and he is on a combination of Merrem him on vancomycin and Levaquin. The patient had a sputum sample sent and showed some gram-positive cocci along with some budding yeasts. He is on IV fluids with normal state rate of 100 mL an hour. Receiving IV Solu-Medrol. He received a dose of Lasix and diuresed well. Mentally he is alert and awake and there is no confusion. He is profoundly weak. He had some difficulties getting up on a chair and he stayed in bed all day. Oral intake is diminished. Hemodynamically stable. On 11/02/2016, patient was reevaluated and he seems to be doing a bit better, remains on a high flow nasal cannula presently at 8 L, less short of breath, no cough, no wheezing, chest x-ray continues to show extensive consolidation in the right lung involving multiple lobes. Patient remains on broad-spectrum antibiotics as noted below.. Still receiving Solu-Medrol and bronchodilators. Overall, the patient is clinically better, but chest x-ray is practically about the same. Labs were reviewed WBC count is 6.3 hemoglobin is 9.2. Electrolytes and renal profile are relatively normal. His O2 flow was titrated down from 15 L nasal cannula to 8 L today. Antibiotics fontana, patient remains on Levaquin, Merrem, and vancomycin. Discussed with the patient today possibly transferring him if accepted to [facility], however will discuss with his admitting physician plans and hopefully they will have a bed available for him. Otherwise I would likely keep the patient in the ICU for the next 24 hours, transferred to a medical floor in the next 24 hours, and still consider transfer plans over the next 24 hours assuming he will be accepted to a regular medical floor. Objective - Vital Signs Vital signs: Vital Signs Temp 98.1 F 11/02/16 08:00 Pulse 73 11/02/16 10:00 Resp 23 11/02/16 10:00 BP 140/92 11/02/16 10:00 Pulse Ox 96 11/02/16 10:00 Intake & Output 11/01/16 11/02/16 11/02/16 18:59 06:59 18:59 Intake Total 1375 950 300 Output Total 2050 800 300 Balance -675 150 0 Weight 72.6 kg 71.2 kg Intake: IV 1175 950 300 Levofloxacin 750Mg-D5w 100 Pmx 750 mg In Dextrose/ Water 1 150ml.bag @ 100 mls/hr IVPB Q24H [facility] Rx#: [id number] Magnesium Sulfate-D5w Pmx 100 1 gm In Dextrose/Water 1 100ml.bag @ 100 mls/hr IVPB Q1H [facility] Rx#: [id number] Meropenem 1 gm In Sodium 100 Chloride 0.9% 100 ml @ 200 mls/hr IVPB Q8HR [facility] Rx#:[id number] Sodium Chloride 0.9% 1, 700 600 200 000 ml @ 50 mls/hr IV . Q20H [facility] Rx#:[id number] Vancomycin 1,250 mg In 375 250 Sodium Chloride 0.9% 250 ml @ 125 mls/hr IVPB Q8H [facility] Rx#:[id number] Intake, IV Titration 200 Amount Meropenem 1 gm In Sodium 200 Chloride 0.9% 100 ml @ 200 mls/hr IVPB Q8HR [facility] Rx#:[id number] Output: Urine 2050 800 300 Other: Voiding Method Urinal Urinal Urinal - Exam Head exam was generally normal. There was no scleral icterus or corneal arcus. Mucous membranes were moist. Scars of previous craniotomy seen over the left forehead area.Neck was supple and without jugular venous distension, thyromegaly , or carotid bruits. Carotids were easily palpable bilaterally. There was no adenopathy. Lung sounds are diminished and there is diffuse and rhonchi and crackles involving the right lung compared to the left. There is also prolongation of expiratory phase of breathing and scattered expiratory wheezes throughout the lung fernandez bilaterally. Patient's breathing is less labored in terms of his breathing and is not using excessive muscle breathing.Cardiac exam revealed the PMI to be normally situated and sized. The rhythm was regular and no extrasystoles were noted during several minutes of auscultation. The first and second heart sounds were normal and physiologic splitting of the second heart sound was noted. There were no murmurs, rubs, clicks, or gallops.Abdominal exam revealed normal bowel sounds. The abdomen was soft, non- tender, and without masses, organomegaly, or appreciable enlargement of the abdominal aorta.Examination of the extremities revealed easily palpable radial, femoral and pedal pulses. There was no cyanosis, clubbing or edema. - Labs CBC & Chem 7: 11/02/16 04:20 11/02/16 04:20 Labs: Abnormal Lab Results - Last 24 Hours (Table) 11/01/16 11/02/16 11/02/16 Range/Units 14:28 04:20 04:20 RBC 3.39 L (4.30-5.90) m/uL Hgb 9.2 L (13.0-17.5) gm/dL Hct 29.3 L (39.0-53.0) % RDW 17.9 H (11.5-15.5) % Lymphocytes # 0.1 L (1.0-4.8) k/uL Sodium 134 L (137-145) mmol/L Potassium 3.0 L* (3.5-5.1) mmol/L Creatinine 0.40 L (0.66-1.25) mg/dL Glucose 118 H (74-99) mg/dL Calcium 8.1 L (8.4-10.2) mg/dL Phosphorus 2.3 L (2.5-4.5) mg/dL Microbiology - Last 24 Hours (Table) 10/30/16 12:55 Gram Stain - Final Sputum Sputum Culture - Final Deandra albicans 10/30/16 00:35 Blood Culture - Preliminary Blood No Growth after 72 hours 10/29/16 20:50 Blood Culture - Preliminary Blood No Growth after 72 hours Assessment and Plan Plan: 1 right lung pneumonia. The patient has extensive multi-lobar/multifocal consolidation of the right lung which is most likely a presentation of an underlying acute pneumonia. There is areas of consolidation and groundglass changes more predominant in the upper lobes and in the mud lobes. The patient also has chronic cavitary changes in the left upper lobe which probably is chronic than acute. Rule out routine community acquired pathogens. Rule out gram-negative and staphylococcal pneumonia. Rule out fungal pneumonia especially with a chronic cavitary changes on the left. The patient was apparently hospitalized on multiple occasions and the possibility of hospital- acquired pathogen cannot be completely excluded. On 10/31/2016, the patient looks slightly more stable compared to yesterday. His improved and is less labored in terms of his breathing. Nevertheless the chest x-ray still showing extensive consolidation of the right lung and was still awaiting further sputum and blood cultures. Meanwhile the patient is still covered with the same broad-spectrum antibiotic coverage. Hemodynamically stable. On 11/01/2016, the patient is still on 40% Ventimask. Chest x-ray findings are essentially stable for now. Cultures had not been yielded for any positive microbial growth. Legionella urine antigen has been sent. On 11/02/2016, patient is now on high flow nasal cannula at 8 L/m. O2 saturations are in the mid 90s. Chest x-ray is basically about the same. Sputum so far seems to be nondiagnostic. 2 acute hypoxic respiratory failure secondary to above 3 non-small cell lung cancer, metastatic with metastases to his brain, left adrenal gland and spine. The exact details of the treatment was offered to this patient is not available however the patient admits of taking chemoradiation therapy to his chest and subsequent palliative radiation therapy to metastatic foci. 4 anemia, likely chronic 5 lactic acidosis resolved. Recommendation: Continue present treatment plan, continue antibiotics, bronchodilators, steroids, prefer to keep the patient in the ICU for another 24 hours, and likely transfer to a regular medical floor or possibly transferred to [facility] at any point he has a bed available for him. We'll continue to follow. Time with Patient: Less than 30
--- NOTE | 2016-11-02 14:11 | PN ---
PROGRESS NOTE DATE OF SERVICE: 11/02/2016 He continues to have some hypoxemia, he is sleepy but arousable. He is not in respiratory distress. His blood pressure is 113/73, respiratory rate of 15, pulse rate of 77, temperature 98 degrees Fahrenheit, O2 saturation on VentiMask is 98%. HEENT reveals pupils are equal. No jugular venous distention. Chest reveals bronchovesicular breath sounds on the right, relatively clear on the left. Cardiovascular system reveals an S1, S2. Abdomen is soft. There is no pedal edema. White count of 6.3, hemoglobin of 9.2, sodium 134, potassium 4.4, chloride 102, bicarb 27. Chest x-ray shows consolidation of the right lung. Microbiological cultures from the sputum are growing contreras albicans which may be colonization. IMPRESSION: 1. Aspiration-type pneumonia on the right side is likely. 2. Sepsis with septic shock. 3. Lung cancer with metastatic disease. 4. Anemia. 5. Mild fluid overload. At this point in time, continue bronchodilators, aerosolized steroids, GI and DVT prophylaxis. Continue antibiotics and steroids. Depending on how he does., we shall make further changes to his care. MMODL / IJN: [id number] /
--- NOTE | 2016-11-02 17:17 | P.PN ---
Subjective Date of service 11/02/2016. Progress Note being dictated for Dr. Oropeza. Interval history: This a 41-year-old gentleman admitted with acute right lower lobe pneumonia, sepsis, acute hypoxic respiratory failure, in a patient with non -small cell lung CA, metastatic brain lesions and multiple other medical issues. Continues on Levaquin, Merrem, vancomycin, nebulized bronchodilators, IV steroids. Maintained on 40% Ventimask, maintaining O2 sats of 95% .chest x- ray reporting large consolidation right lower lung field, milder infiltrate in the right upper lung field. Afebrile, normal WBC. [facility] transfer in progress. Past medical history reviewed. Review of systems: CONSTITUTIONAL: No fever, no malaise. HEENT: No recent visual problems or hearing problems. Denied any sore throat. CARDIOVASCULAR: No chest pain, no palpitations, no syncope. PULMONARY: Positive shortness of breath, occasional cough, no hemoptysis. GASTROINTESTINAL: No diarrhea, no nausea, no vomiting, no abdominal pain. Normoactive bowel sounds. NEUROLOGICAL: No headaches, no weakness, no numbness. HEMATOLOGICAL: Denies any bleeding or petechiae. GENITOURINARY: Denies any burning micturition, frequency, or urgency. MUSCULOSKELETAL/RHEUMATOLOGICAL: Denies any joint pain, swelling, or any muscle pain. ENDOCRINE: Denies any polyuria or polydipsia. PSYCHIATRIC: No anxiety, no depression Active Medications Albuterol/Ipratropium (Duoneb 0.5 Mg-3 Mg/3 Ml Soln) 3 ml INHALATION RT-QID [facility] Last Admin: 11/02/16 12:04 Dose: 3 ml Albuterol/Ipratropium (Duoneb 0.5 Mg-3 Mg/3 Ml Soln) 3 ml INHALATION RT-Q2H PRN PRN Reason: Shortness Of Breath Or Wheezing Last Admin: 11/02/16 03:56 Dose: 3 ml Budesonide (Pulmicort) 0.5 mg INHALATION RT-BID [facility] Last Admin: 11/02/16 08:15 Dose: 0.5 mg Chlorphenir/Hydrocodone Polistirex (Tussionex) 5 ml PO Q12HR [facility] Last Admin: 11/02/16 09:55 Dose: 5 ml Enoxaparin Sodium (Lovenox) 40 mg SQ DAILY [facility] Last Admin: 11/02/16 08:44 Dose: 40 mg Famotidine (Pepcid) 20 mg PO BID [facility] Last Admin: 11/02/16 08:45 Dose: 20 mg Hydromorphone HCl (Dilaudid) 1 mg IVP Q3H PRN PRN Reason: Pain Last Admin: 11/02/16 11:04 Dose: 1 mg Levofloxacin 750 mg/ IV (Solution) 150 mls @ 100 mls/hr IVPB Q24H [facility] Last Admin: 11/01/16 20:25 Dose: 100 mls/hr Sodium Chloride (Saline 0.9%) 1,000 mls @ 50 mls/hr IV .Q20H [facility] Last Admin: 11/02/16 08:44 Dose: 50 mls/hr Vancomycin HCl 1,250 mg/ (Sodium Chloride) 250 mls @ 125 mls/hr IVPB Q8H [facility] Last Admin: 11/02/16 14:51 Dose: 125 mls/hr Meropenem 1 gm/ Sodium (Chloride) 100 mls @ 200 mls/hr IVPB Q8HR [facility] Last Admin: 11/02/16 08:43 Dose: 200 mls/hr Ibuprofen (Motrin) 800 mg PO BID PRN PRN Reason: Pain Last Admin: 10/30/16 02:55 Dose: 800 mg Lorazepam (Ativan) 1 mg PO BID PRN PRN Reason: Anxiety Last Admin: 11/02/16 13:20 Dose: 1 mg Methylprednisolone Sodium Succinate (Solu-Medrol) 60 mg IV Q6HR [facility] Last Admin: 11/02/16 12:20 Dose: 60 mg Miscellaneous Information (Pneumonia Protocol Utilized) 1 each PO ONCE PRN PRN Reason: Per Protocol Miscellaneous Information (Magnesium Per Protocol) 1 each MISCELLANE DAILY PRN ; Protocol PRN Reason: Per Protocol Miscellaneous Information (Potassium Per Protocol) 1 each MISCELLANE DAILY PRN ; Protocol PRN Reason: Per Protocol Miscellaneous Information (Vancomycin Trough Due) 0 each MISCELLANE DIRECTED ONE Stop: 11/03/16 05:01 Naloxone HCl (Narcan) 0.2 mg IV Q2M PRN PRN Reason: Opioid Reversal Ondansetron HCl (Zofran) 4 mg IVP Q6HR PRN PRN Reason: Nausea And Vomiting Last Admin: 10/30/16 10:00 Dose: 4 mg Oxycodone HCl (Oxyir) 30 mg PO QID PRN PRN Reason: Pain Last Admin: 11/02/16 13:12 Dose: 30 mg Objective - Vital Signs Vital signs: Vital Signs Temp 98.0 F 11/02/16 12:00 Pulse 74 11/02/16 15:00 Resp 22 11/02/16 15:00 BP 121/80 11/02/16 15:00 Pulse Ox 98 11/02/16 15:00 Intake & Output 11/01/16 11/02/16 11/02/16 18:59 06:59 18:59 Intake Total 1375 950 800 Output Total 2050 800 600 Balance -675 150 200 Weight 72.6 kg 71.2 kg Intake: IV 1175 950 800 Levofloxacin 750Mg-D5w 100 Pmx 750 mg In Dextrose/ Water 1 150ml.bag @ 100 mls/hr IVPB Q24H [facility] Rx#: [id number] Magnesium Sulfate-D5w Pmx 100 1 gm In Dextrose/Water 1 100ml.bag @ 100 mls/hr IVPB Q1H [facility] Rx#: [id number] Meropenem 1 gm In Sodium 100 Chloride 0.9% 100 ml @ 200 mls/hr IVPB Q8HR [facility] Rx#:[id number] Sodium Chloride 0.9% 1, 700 600 400 000 ml @ 50 mls/hr IV . Q20H [facility] Rx#:[id number] Vancomycin 1,250 mg In 375 250 300 Sodium Chloride 0.9% 250 ml @ 125 mls/hr IVPB Q8H [facility] Rx#:[id number] Intake, IV Titration 200 Amount Meropenem 1 gm In Sodium 200 Chloride 0.9% 100 ml @ 200 mls/hr IVPB Q8HR [facility] Rx#:[id number] Output: Urine 2050 800 600 Other: Voiding Method Urinal Urinal Urinal - Exam PHYSICAL EXAM: VITAL SIGNS: As above GENERAL: Sitting up in bed, fatigued HEENT: Conjunctivae normal. Pupils equal. Oral mucosa moist. NECK: No JVD. No carotid bruit. No thyroid enlargement. CARDIOVASCULAR: S1, S2 muffled. No murmur RESPIRATION: Respiratory effort increased. Breath sounds diminished in the bases. Bilateral expiratory wheezes with Scattered rhonchi and crackles throughout, more so on the right, ABDOMEN: Soft, nontender . No guarding. no masses palpable. Positive bowel sounds LEGS: No edema. no swelling PSYCHIATRY: Alert and oriented 3, mood and affect normal. NERVOUS SYSTEM: Cranial N 2-12 grossly normal. Moves all 4 limbs. Diffuse weakness No focal deficits. No sensory deficit. Skin: no ulcer no rash Joints: No active swelling. No inflammation. Lymphatic system. No LN neck axilla or groin. - Labs CBC & Chem 7: 11/02/16 04:20 11/02/16 04:20 Labs: Abnormal Lab Results - Last 24 Hours (Table) 11/02/16 11/02/16 Range/Units 04:20 04:20 RBC 3.39 L (4.30-5.90) m/uL Hgb 9.2 L (13.0-17.5) gm/dL Hct 29.3 L (39.0-53.0) % RDW 17.9 H (11.5-15.5) % Lymphocytes # 0.1 L (1.0-4.8) k/uL Sodium 134 L (137-145) mmol/L Creatinine 0.40 L (0.66-1.25) mg/dL Glucose 118 H (74-99) mg/dL Calcium 8.1 L (8.4-10.2) mg/dL Phosphorus 2.3 L (2.5-4.5) mg/dL Microbiology - Last 24 Hours (Table) 10/30/16 12:55 Gram Stain - Final Sputum Sputum Culture - Final Deandra albicans 10/30/16 00:35 Blood Culture - Preliminary Blood No Growth after 72 hours 10/29/16 20:50 Blood Culture - Preliminary Blood No Growth after 72 hours Assessment and Plan Plan: 1. Acute right lower lobe pneumonia, possibly gram-negative pneumonia with sepsis and acute hypoxic respiratory failure. 2. [ Non-small cell lung CA status post chemotherapy]. 3. [ History of metastatic brain lesion]. 4. [ Anemia, normocytic anemia and malignancy]. Plan: Continue on current medication regime ,monitoring and symptomatic treatment. Maintain nebulized bronchodilators, steroids. Antibiotics as per infectious disease. Transfer to [facility] in progress. Family at bedside and updated on plan of care and in agreement with.Further recommendations to follow. The impression and plan of care has been dictated as directed. : Julisa performed a H&P examination of this patient and discussed the same with the dictator. I agree with the dictator's note. Any additional findings/opinions/ etc. will be noted.
[2016-11-02] MEDS: LEVOFLOXACIN 750MG-D5W PMX 750 MG in DEXTROSE/WATER 1 150ML.BAG IVPB SCH (20:46)
[2016-11-03] MEDS: MEROPENEM 1 GM in SODIUM CHLORIDE 0.9% 100 ML IVPB SCH ×3 (00:03→16:51)
[2016-11-03] MEDS: methylPREDNISolone SOD SUCCI 125 MG/2 ML VIAL IV SCH ×4 (00:03→19:47)
[2016-11-03] MEDS: LORazepam 1 MG TAB PO PRN (00:04)
[2016-11-03] MEDS: HYDROmorphone 1 MG/ML 1 ML SYRINGE IVP PRN ×7 (00:04→21:48)
[2016-11-03 04:13] LABS: Anisocytosis Slight; Basophils % (A) 0 %; CH 27.9; CHCM 32.5; Eosinophils % (A) 0 %; HDW 2.73; HGB 9.3 gm/dL (13.0-17.5); Luc # (Auto) 0.05; Luc % (Auto) 1; Lymphocytes # (A) 0.1 k/uL (1.0-4.8); Lymphocytes % (A) 1 %; MCH 26.7 pg (25.0-35.0); Mean Platelet Volume 7.3; Monocytes # (A) 0.3 k/uL (0-1.0); Monocytes % (A) 5 %; Neutrophils # (A) 6.3 k/uL (1.3-7.7); Neutrophils % (A) 94 %; RBC 3.49 m/uL (4.30-5.90); RDW 17.9 % (11.5-15.5); WBC 6.7 k/uL (3.8-10.6); WBC (Perox) 6.98
[2016-11-03 04:31] LABS: Anion Gap 4 mmol/L; Blood Urea Nitrogen 9 mg/dL (9-20); Calcium 8.1 mg/dL (8.4-10.2); Carbon Dioxide 32 mmol/L (22-30); Chloride 99 mmol/L (98-107); Glucose 123 mg/dL (74-99); Non-African American GFR(MDRD) >60 (>60 ml/min/1.73 sqM); Phosphorous 2.7 mg/dL (2.5-4.5); Potassium 3.3 mmol/L (3.5-5.1); Sodium 135 mmol/L (137-145)
[2016-11-03] MEDS ORDERED: Potassium Replacement Protocol 1 EACH MISC MISCELLANE PRN (04:46)
[2016-11-03] MEDS ORDERED: VANCOMYCIN TROUGH DUE 1 EACH MISC MISCELLANE ONE (05:00)
[2016-11-03] MEDS: POTASSIUM CHLORIDE ER 20 MEQ TAB.ER PO SCH ×2 (06:12→06:54)
[2016-11-03] MEDS: VANCOMYCIN 1,250 MG in SODIUM CHLORIDE 0.9% 250 ML IVPB SCH ×3 (06:12→22:44)
[2016-11-03] MEDS: SODIUM CHLORIDE 0.9% 1,000 ML IV SCH (06:13)
--- NOTE | 2016-11-03 07:05 | PN ---
PROGRESS NOTE DATE OF SERVICE: 11/02/2016. REASON FOR FOLLOWUP: Pneumonia. INTERVAL HISTORY: The patient is afebrile. He is breathing comfortably. The patient has some chest pain mostly on the left side of the chest, not on the right. He did have a cough, but less productive. No nausea, vomiting. No abdominal pain or any diarrhea. PHYSICAL EXAMINATION: On examination, blood pressure is 131/84 with a pulse of 82, temperature 98.6. He is 95% on 40% on ventimask. General description is a middle age male, lying in bed, in no distress. RESPIRATORY SYSTEM: Unlabored breathing. Coarse breaths mostly on the right side. No wheeze. HEART: S1, S2. Regular rate and rhythm. ABDOMEN: Soft, no tenderness. LABS: Hemoglobin 9.2, white count 6.3. BUN of 15 and creatinine 0.40. Sputum with Deandra. Blood culture negative. DIAGNOSTIC IMPRESSION AND PLAN: Patient with right-sided pneumonia in a patient who does have underlying lung cancer on the left side with pain mostly on the left side. The patient currently afebrile. White count normal. Sputum not showing any resistant pathogen. He has been kept on broad- spectrum antibiotic in the form of meropenem, vancomycin and Levaquin;keep meropenem as cannot use Zosyn because of PCN allergy and continue with vancomycin and Levaquin at this point. Continue supportive care. MMODL / IJN: [id number] / RENE
[2016-11-03] MEDS: BUDESONIDE 0.5 MG/2 ML NEBU INHALATION SCH ×2 (07:57→20:10)
[2016-11-03] MEDS: IPRATROPIUM-ALBUTEROL 3 ML NEB INHALATION SCH ×4 (07:57→20:10)
[2016-11-03] MEDS: CHLORPHEN-HYDROcod 8-10mg/5ml 5 ML ORAL.SYRG PO SCH ×2 (08:39→21:38)
[2016-11-03] MEDS: FAMOTIDINE 20 MG TAB PO SCH ×2 (08:39→21:39)
[2016-11-03] MEDS: ENOXAPARIN 40 MG/0.4 ML SYRINGE SQ SCH (08:39)
[2016-11-03 09:30] VITALS: BMI 20.4
--- NOTE | 2016-11-03 10:16 | XR ---
EXAMINATION TYPE: XR chest 1V DATE OF EXAM: 11/03/2016 COMPARISON: 11/02/2016 HISTORY: Pneumonia TECHNIQUE: Single frontal view of the chest is obtained. FINDINGS: Diffuse bilateral infiltrates are stable. Sclerotic vertebral body thoracic spine stable. Mediport catheter seen with the catheter somewhat coiled. No pneumothorax. Arthropathy of the shoulde rs. IMPRESSION: 1. Diffuse airspace disease bilaterally stable.
--- NOTE | 2016-11-03 12:02 | P.PN ---
Subjective Principal diagnosis: Extensive right lung pneumonia, history of underlying bronchogenic carcinoma 41 yo male patient was diagnosed having non-small cell lung cancer approximately 2 years ago and he has been treated at [facility] [place] by Dr. Heather Aguilar. The patient lives in [place] the patient was visiting his family in [facility] where over the past 24 hours he progressively became short of breath and he presented to the emergency department yesterday with acute respiratory failure. The patient has increased cough, increased shortness of breath, increased chest congestion, cough and not copious amount of thick purulent yellowish sputum. At the same time he had become significantly lethargic and weak. He had a low-grade temperature 100.3 and currently is afebrile. He presented emergency department and the patient was given a CAT scan of the chest that showed multifocal right lung pneumonia. At the same time there was evidence of chronic left upper lobe collapse with cavitation which probably is in agreement with this history of non-small cell lung cancer. There was also a large left adrenal mass which is probably best that it from an underlying lung cancer. No evidence of any pulmonary embolism. The patient got moved to the intensive care unit. Overnight he had episodes of hypotension and he was given a total of 2 and half liters of IV fluids and currently is on a 0.9 normal saline running at 100 mL an hour. The patient is also covered with broad-spectrum antibiotics and I further adjusted antibiotics to include a combination of Merrem, vancomycin, Levaquin and micafungin was also added due to concerns of fungal pneumonia. He is quite uncomfortable. Is complaining of frequent cough and chest congestion. His white cell count is at 9.8. He is on no pressors at this point. No change in mental status. Very much lethargic. His lactic acid level was at 4.6 and femoral admission dropped down to 1.2 In terms of history of lung cancer, the patient was diagnosed approximately 2 years ago. He probably had located vessel disease and he was initially treated with a combination of chemoradiation therapy. The patient subsequently progressed and developed metastases to his brain and he has undergone craniotomy and resection of cancerous lesions and subsequent brain radiation. He also developed adrenal metastases and spinal metastases with radiation therapy. He was given systemic chemotherapy and the exact schedule of chemotherapy is not clear to me at this point. He was also given oral chemotherapy including Opdivo. He is an ex-smoker. No history of emphysema or asthma. No history of DVT or pulmonary embolism. He apparently was doing well and he was in a good state of health prior to him presenting to our emergency department. He lives in a [place] area. He lives with his who is not in the area. He is nauseated. No diarrhea. No change in mental status at this point. On 10/31/2016 I'm seeing this patient in follow-up. Note that I have already spoken to the [facility] physicians in regards to transfer. The recommendations was to keep the patient now hospital knowing that there is no ongoing oncologic a show for now. The active issue is obviously an infectious pneumonia affecting the patient's right lung. For that reason the patient was kept here in our hospital. I spoke with Dr. Seven Amezcua at [facility]. On today's evaluation, the patient is slightly short of breath a chest x-ray findings are essentially stable with extensive consolidation of the right lung in addition to chronic left apical cavitary changes. The patient is afebrile the patient is hemodynamically stable. The patient is on a combination of antibiotics including Levaquin, Merrem and vancomycin. White cell count is not elevated. His hemoglobin is down to 5.6. Rest of the electrodes are all within normal limits. No change in mental status. He is on 43 of oxygen by nasal cannula and his saturations around 92%. No significant tachycardias heart rate has improved. He is maintaining his own pressure. Urine output is adequate. The patient is also on bronchodilators and systemic steroids. On 11/01/2016 I'm seeing this patient in follow-up. The patient is acute hypoxic respiratory failure. Yesterday the patient became a bit more short of breath and hypoxic and he had to be placed on a 40% Ventimask. His pulse ox is around 91-92% on 40% Ventimask. Chest x-ray shows stable consolidation of the entire right lung. The patient remains on broad-spectrum antibiotics and he is on a combination of Merrem him on vancomycin and Levaquin. The patient had a sputum sample sent and showed some gram-positive cocci along with some budding yeasts. He is on IV fluids with normal state rate of 100 mL an hour. Receiving IV Solu-Medrol. He received a dose of Lasix and diuresed well. Mentally he is alert and awake and there is no confusion. He is profoundly weak. He had some difficulties getting up on a chair and he stayed in bed all day. Oral intake is diminished. Hemodynamically stable. On 11/02/2016, patient was reevaluated and he seems to be doing a bit better, remains on a high flow nasal cannula presently at 8 L, less short of breath, no cough, no wheezing, chest x-ray continues to show extensive consolidation in the right lung involving multiple lobes. Patient remains on broad-spectrum antibiotics as noted below.. Still receiving Solu-Medrol and bronchodilators. Overall, the patient is clinically better, but chest x-ray is practically about the same. Labs were reviewed WBC count is 6.3 hemoglobin is 9.2. Electrolytes and renal profile are relatively normal. His O2 flow was titrated down from 15 L nasal cannula to 8 L today. Antibiotics fontana, patient remains on Levaquin, Merrem, and vancomycin. Discussed with the patient today possibly transferring him if accepted to [facility], however will discuss with his admitting physician plans and hopefully they will have a bed available for him. Otherwise I would likely keep the patient in the ICU for the next 24 hours, transferred to a medical floor in the next 24 hours, and still consider transfer plans over the next 24 hours assuming he will be accepted to a regular medical floor. Reevaluated today on 11/03/2016, patient continues to improve clinically, less shortness of breath, less cough, less respiratory distress, however his chest x- ray is about the same or possibly a slight improvement noted. Patient remains on high flow nasal cannula and at times he is on a 40% Ventimask. He remains on all the same medications including bronchodilators antibiotics and steroids. His labs were reviewed and he has a relatively normal CBC except for hemoglobin of 9.3. Potassium is 3.3 being corrected as per protocol. Renal profile is normal. Objective - Vital Signs Vital signs: Vital Signs Temp 98.4 F 11/03/16 08:00 Pulse 77 11/03/16 08:21 Resp 24 11/03/16 08:00 BP 143/90 11/03/16 08:00 Pulse Ox 93 L 11/03/16 08:00 Intake & Output 11/02/16 11/03/16 11/03/16 18:59 06:59 18:59 Intake Total 1050 1275 325 Output Total 1150 1750 500 Balance -100 -475 -175 Weight 70.2 kg 70.2 kg Intake: IV 1050 1275 325 Levofloxacin 750Mg-D5w 100 Pmx 750 mg In Dextrose/ Water 1 150ml.bag @ 100 mls/hr IVPB Q24H LURDES Rx#: [id number] Meropenem 1 gm In Sodium 200 200 100 Chloride 0.9% 100 ml @ 200 mls/hr IVPB Q8HR LURDES Rx#:[id number] Sodium Chloride 0.9% 1, 550 600 100 000 ml @ 50 mls/hr IV . Q20H LURDES Rx#:[id number] Vancomycin 1,250 mg In 300 375 125 Sodium Chloride 0.9% 250 ml @ 125 mls/hr IVPB Q8H LURDES Rx#:[id number] Output: Urine 1150 1750 500 Other: Voiding Method Urinal Urinal Urinal - Exam Head exam was generally normal. There was no scleral icterus or corneal arcus. Mucous membranes were moist. Scars of previous craniotomy seen over the left forehead area.Neck was supple and without jugular venous distension, thyromegaly , or carotid bruits. Carotids were easily palpable bilaterally. There was no adenopathy. Lung sounds are diminished and there is diffuse and rhonchi and crackles involving the right lung compared to the left. There is also prolongation of expiratory phase of breathing and scattered expiratory wheezes throughout the lung fernandez bilaterally. Patient's breathing is less labored in terms of his breathing and is not using excessive muscle breathing.Cardiac exam revealed the PMI to be normally situated and sized. The rhythm was regular and no extrasystoles were noted during several minutes of auscultation. The first and second heart sounds were normal and physiologic splitting of the second heart sound was noted. There were no murmurs, rubs, clicks, or gallops.Abdominal exam revealed normal bowel sounds. The abdomen was soft, non- tender, and without masses, organomegaly, or appreciable enlargement of the abdominal aorta.Examination of the extremities revealed easily palpable radial, femoral and pedal pulses. There was no cyanosis, clubbing or edema. - Labs CBC & Chem 7: 11/03/16 04:00 11/03/16 04:00 Labs: Abnormal Lab Results - Last 24 Hours (Table) 11/03/16 11/03/16 Range/Units 04:00 04:00 RBC 3.49 L (4.30-5.90) m/uL Hgb 9.3 L (13.0-17.5) gm/dL Hct 30.0 L (39.0-53.0) % RDW 17.9 H (11.5-15.5) % Lymphocytes # 0.1 L (1.0-4.8) k/uL Sodium 135 L (137-145) mmol/L Potassium 3.3 L (3.5-5.1) mmol/L Carbon Dioxide 32 H (22-30) mmol/L Creatinine 0.44 L (0.66-1.25) mg/dL Glucose 123 H (74-99) mg/dL Calcium 8.1 L (8.4-10.2) mg/dL Microbiology - Last 24 Hours (Table) 10/30/16 00:35 Blood Culture - Preliminary Blood No Growth after 96 hours 10/29/16 20:50 Blood Culture - Preliminary Blood No Growth after 96 hours 10/30/16 12:55 Gram Stain - Final Sputum Sputum Culture - Final Deandra albicans Assessment and Plan Plan: 1 extensive right lung pneumonia. The patient has extensive multi-lobar/ multifocal consolidation of the right lung which is most likely a presentation of an underlying acute pneumonia. There is areas of consolidation and groundglass changes more predominant in the upper lobes and in the middle lobe. The patient also has chronic cavitary changes in the left upper lobe which probably is chronic than acute. Rule out routine community acquired pathogens. Rule out gram-negative and staphylococcal pneumonia. Rule out fungal pneumonia especially with a chronic cavitary changes on the left. The patient was apparently hospitalized on multiple occasions and the possibility of hospital-acquired pathogen cannot be completely excluded. On 10/31/2016, the patient looks slightly more stable compared to yesterday. His improved and is less labored in terms of his breathing. Nevertheless the chest x-ray still showing extensive consolidation of the right lung and was still awaiting further sputum and blood cultures. Meanwhile the patient is still covered with the same broad-spectrum antibiotic coverage. Hemodynamically stable. On 11/01/2016, the patient is still on 40% Ventimask. Chest x-ray findings are essentially stable for now. Cultures had not been yielded for any positive microbial growth. Legionella urine antigen has been sent. On 11/02/2016, patient is now on high flow nasal cannula at 8 L/m. O2 saturations are in the mid 90s. Chest x-ray is basically about the same. Sputum so far seems to be nondiagnostic. On 11/03/2016, patient continues to clinically improve, chest x-ray is about the same or possibly a slight improvement is noted. Hence I will arrange for the patient be transferred out of the ICU to a regular medical floor, in the meantime we'll continue to address the issue of transfer to [facility]. 2 acute hypoxic respiratory failure secondary to above 3 non-small cell lung cancer, metastatic with metastases to his brain, left adrenal gland and spine. The exact details of the treatment was offered to this patient is not available however the patient admits of taking chemoradiation therapy to his chest and subsequent palliative radiation therapy to metastatic foci. 4 anemia, likely chronic 5 lactic acidosis resolved. 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 No need for an horticultural specialty grower to follow. Time with Patient: Less than 30
[2016-11-03] MEDS: MEROPENEM 2 GM in SODIUM CHLORIDE 0.9% 100 ML IVPB SCH (13:11)
--- NOTE | 2016-11-03 15:52 | P.PN ---
Subjective Progress Note being dictated for Dr. Oropeza. 11/02/16 Interval history: This a 41-year-old gentleman admitted with acute right lower lobe pneumonia, sepsis, acute hypoxic respiratory failure, in a patient with non-small cell lung CA, metastatic brain lesions and multiple other medical issues. Continues on Levaquin, Merrem, vancomycin, nebulized bronchodilators, IV steroids. Maintained on 40% Ventimask, maintaining O2 sats of 95% .chest x-ray reporting large consolidation right lower lung field, milder infiltrate in the right upper lung field. Afebrile, normal WBC. [facility] transfer in progress. 11/03/2016 awaiting transfer out of ICU to [facility]. Chest x-ray noted, stable. Telemetry sinus rhythm. Alternating between 40% Ventimask and high flow nasal cannula, maintaining O2 sats in the 90s. Authorization for transfer to [facility] received, transfer pending. Diet intake remains poor. Past medical history reviewed. Review of systems: CONSTITUTIONAL: No fever, tired, did not sleep well last night HEENT: No recent visual problems or hearing problems. Denied any sore throat. CARDIOVASCULAR: No chest pain, no palpitations, no syncope. PULMONARY: Positive shortness of breath, occasional nonproductive cough, no hemoptysis. GASTROINTESTINAL: No diarrhea, no nausea, no vomiting, no abdominal pain. Normoactive bowel sounds. Appetite poor. NEUROLOGICAL: No headaches, no weakness, no numbness. HEMATOLOGICAL: Denies any bleeding or petechiae. GENITOURINARY: Denies any burning micturition, frequency, or urgency. MUSCULOSKELETAL/RHEUMATOLOGICAL: Denies any joint pain, swelling, or any muscle pain. ENDOCRINE: Denies any polyuria or polydipsia. PSYCHIATRIC: No anxiety, no depression Active Medications Generic Name Dose Route Start Last Admin Trade Name Freq PRN Reason Stop Dose Admin Albuterol/Ipratropium 3 ml 10/30/16 08:00 11/03/16 15:35 Duoneb 0.5 Mg-3 Mg/3 Ml Soln INHALATION 3 ml RT-QID LURDES Administration Albuterol/Ipratropium 3 ml 10/30/16 00:54 11/02/16 03:56 Duoneb 0.5 Mg-3 Mg/3 Ml Soln INHALATION 3 ml RT-Q2H PRN Administration Shortness Of Breath Or Wheezing Budesonide 0.5 mg 10/31/16 20:00 11/03/16 07:57 Pulmicort INHALATION 0.5 mg RT-BID LURDES Administration Chlorphenir/Hydrocodone Polistirex 5 ml 11/02/16 09:00 11/03/16 08:39 Tussionex PO 5 ml Q12HR LURDES Administration Enoxaparin Sodium 40 mg 10/30/16 09:00 11/03/16 08:39 Lovenox SQ 40 mg DAILY LURDES Administration Famotidine 20 mg 10/31/16 21:00 11/03/16 08:39 Pepcid PO 20 mg BID LURDES Administration Hydromorphone HCl 1 mg 10/30/16 09:58 11/03/16 14:52 Dilaudid IVP 1 mg Q3H PRN Administration Pain Levofloxacin 750 mg/ IV 150 mls @ 100 mls/hr 10/30/16 21:00 11/02/16 20:46 Solution IVPB 100 mls/hr Q24H LURDES Administration Sodium Chloride 1,000 mls @ 50 mls/hr 10/30/16 00:00 11/03/16 06:13 Saline 0.9% IV 50 mls/hr .Q20H LURDES Administration Vancomycin HCl 1,250 mg/ 250 mls @ 125 mls/hr 10/30/16 14:00 11/03/16 14:48 Sodium Chloride IVPB 125 mls/hr Q8H LURDES Administration Meropenem 1 gm/ Sodium 100 mls @ 200 mls/hr 10/30/16 16:10 11/03/16 08:38 Chloride IVPB 200 mls/hr Q8HR LURDES Administration Ibuprofen 800 mg 10/30/16 01:40 10/30/16 02:55 Motrin PO 800 mg BID PRN Administration Pain Lorazepam 1 mg 10/31/16 15:31 11/03/16 00:04 Ativan PO 1 mg BID PRN Administration Anxiety Methylprednisolone Sodium Succinate 60 mg 10/30/16 12:00 11/03/16 13:15 Solu-Medrol IV 60 mg Q6HR LURDES Administration Miscellaneous Information 1 each 10/30/16 00:00 Pneumonia Protocol Utilized PO ONCE PRN Per Protocol Miscellaneous Information 1 each 11/01/16 05:04 Magnesium Per Protocol MISCELLANE DAILY PRN Per Protocol Protocol Miscellaneous Information 1 each 11/01/16 05:03 Potassium Per Protocol MISCELLANE DAILY PRN Per Protocol Protocol Naloxone HCl 0.2 mg 10/30/16 19:13 Narcan IV Q2M PRN Opioid Reversal Ondansetron HCl 4 mg 10/30/16 08:58 10/30/16 10:00 Zofran IVP 4 mg Q6HR PRN Administration Nausea And Vomiting Oxycodone HCl 30 mg 10/30/16 01:40 11/03/16 13:13 Oxyir PO 30 mg QID PRN Administration Pain Objective - Vital Signs Vital signs: Vital Signs Temp 97.6 F 11/03/16 15:00 Pulse 82 11/03/16 15:35 Resp 24 11/03/16 08:00 BP 154/95 11/03/16 15:00 Pulse Ox 97 11/03/16 15:35 Intake & Output 11/02/16 11/03/16 11/03/16 18:59 06:59 18:59 Intake Total 1050 1275 325 Output Total 1150 1750 500 Balance -100 -475 -175 Weight 70.2 kg 70.2 kg Intake: IV 1050 1275 325 Levofloxacin 750Mg-D5w 100 Pmx 750 mg In Dextrose/ Water 1 150ml.bag @ 100 mls/hr IVPB Q24H LURDES Rx#: [id number] Meropenem 1 gm In Sodium 200 200 100 Chloride 0.9% 100 ml @ 200 mls/hr IVPB Q8HR LURDES Rx#:[id number] Sodium Chloride 0.9% 1, 550 600 100 000 ml @ 50 mls/hr IV . Q20H LURDES Rx#:[id number] Vancomycin 1,250 mg In 300 375 125 Sodium Chloride 0.9% 250 ml @ 125 mls/hr IVPB Q8H LURDES Rx#:[id number] Output: Urine 1150 1750 500 Other: Voiding Method Urinal Urinal Urinal # Voids 2 - Exam PHYSICAL EXAM: VITAL SIGNS: As above GENERAL: Sitting up in bed, fatigued HEENT: Conjunctivae normal. Pupils equal. Oral mucosa moist. NECK: No JVD. No carotid bruit. No thyroid enlargement. CARDIOVASCULAR: S1, S2 muffled. No murmurs, no rubs, no gallops RESPIRATION: Respiratory effort increased. Breath sounds diminished in the bases. Bilateral expiratory wheezes with Scattered rhonchi and crackles throughout, more so on the right, ABDOMEN: Soft, nontender . No guarding. no masses palpable. Positive bowel sounds LEGS: No edema. no swelling PSYCHIATRY: Alert and oriented 3, mood and affect normal. NERVOUS SYSTEM: Cranial N 2-12 grossly normal. Moves all 4 limbs. Diffuse weakness No focal deficits. No sensory deficit. Skin: no ulcer no rash Joints: No active swelling. No inflammation. - Labs CBC & Chem 7: 11/03/16 04:00 11/03/16 04:00 Labs: Abnormal Lab Results - Last 24 Hours (Table) 11/03/16 11/03/16 Range/Units 04:00 04:00 RBC 3.49 L (4.30-5.90) m/uL Hgb 9.3 L (13.0-17.5) gm/dL Hct 30.0 L (39.0-53.0) % RDW 17.9 H (11.5-15.5) % Lymphocytes # 0.1 L (1.0-4.8) k/uL Sodium 135 L (137-145) mmol/L Potassium 3.3 L (3.5-5.1) mmol/L Carbon Dioxide 32 H (22-30) mmol/L Creatinine 0.44 L (0.66-1.25) mg/dL Glucose 123 H (74-99) mg/dL Calcium 8.1 L (8.4-10.2) mg/dL Microbiology - Last 24 Hours (Table) 10/30/16 00:35 Blood Culture - Preliminary Blood No Growth after 96 hours 10/29/16 20:50 Blood Culture - Preliminary Blood No Growth after 96 hours Assessment and Plan Plan: 1. Acute right lower lobe pneumonia, possibly gram-negative pneumonia with sepsis and acute hypoxic respiratory failure. 2. [ Non-small cell lung CA status post chemotherapy]. 3. [ History of metastatic brain lesion]. 4. [ Anemia, normocytic anemia and malignancy]. Plan: Continue on current medication regime ,monitoring and symptomatic treatment. Maintain nebulized bronchodilators, steroids. Antibiotics as per infectious disease. Awaiting transfer out of ICU to [facility]. Transfer to [facility] in progress. Further recommendations to follow. The impression and plan of care has been dictated as directed. : I performed a H&P examination of this patient and discussed the same with the dictator. I agree with the dictator's note. Any additional findings/opinions/ etc. will be noted.
[2016-11-03] MEDS: LEVOFLOXACIN 750MG-D5W PMX 750 MG in DEXTROSE/WATER 1 150ML.BAG IVPB SCH (21:39)
[2016-11-04] MEDS: MEROPENEM 1 GM in SODIUM CHLORIDE 0.9% 100 ML IVPB SCH ×3 (00:41→16:45)
[2016-11-04] MEDS: methylPREDNISolone SOD SUCCI 125 MG/2 ML VIAL IV SCH ×4 (00:44→17:36)
[2016-11-04] MEDS: SODIUM CHLORIDE 0.9% 1,000 ML IV SCH ×2 (02:52→04:24)
[2016-11-04] MEDS: HYDROmorphone 1 MG/ML 1 ML SYRINGE IVP PRN ×5 (05:16→17:35)
[2016-11-04 06:02] LABS: Anisocytosis Slight; Basophils % (A) 0 %; CH 28.1; CHCM 32.4; Eosinophils % (A) 0 %; HCT 30.9 % (39.0-53.0); HDW 2.69; HGB 9.7 gm/dL (13.0-17.5); Luc # (Auto) 0.06; Luc % (Auto) 1; Lymphocytes # (A) 0.1 k/uL (1.0-4.8); Lymphocytes % (A) 2 %; MCH 27.3 pg (25.0-35.0); MCHC 31.4 g/dL (31.0-37.0); MCV 87.2 fL (80.0-100.0); Mean Platelet Volume 7.4; Monocytes # (A) 0.2 k/uL (0-1.0); Monocytes % (A) 3 %; Neutrophils # (A) 6.4 k/uL (1.3-7.7); Neutrophils % (A) 94 %; RBC 3.54 m/uL (4.30-5.90); RDW 17.9 % (11.5-15.5); WBC 6.8 k/uL (3.8-10.6); WBC (Perox) 6.99
[2016-11-04] MEDS: VANCOMYCIN 1,250 MG in SODIUM CHLORIDE 0.9% 250 ML IVPB SCH ×2 (06:12→14:43)
[2016-11-04 06:25] LABS: Anion Gap 4 mmol/L; Blood Urea Nitrogen 9 mg/dL (9-20); Calcium 8.2 mg/dL (8.4-10.2); Carbon Dioxide 34 mmol/L (22-30); Chloride 97 mmol/L (98-107); Glucose 136 mg/dL (74-99); Non-African American GFR(MDRD) >60 (>60 ml/min/1.73 sqM); Phosphorous 2.7 mg/dL (2.5-4.5); Potassium 3.4 mmol/L (3.5-5.1); Sodium 135 mmol/L (137-145)
[2016-11-04] MEDS: BUDESONIDE 0.5 MG/2 ML NEBU INHALATION SCH (07:42)
[2016-11-04] MEDS: IPRATROPIUM-ALBUTEROL 3 ML NEB INHALATION SCH ×3 (07:44→15:28)
[2016-11-04] MEDS ORDERED: POTASSIUM CHLORIDE 20 MEQ in WATER FOR INJECTION 1 100ML.BAG IVPB ONE (10:00)
[2016-11-04] MEDS: ENOXAPARIN 40 MG/0.4 ML SYRINGE SQ SCH (10:28)
[2016-11-04] MEDS: CHLORPHEN-HYDROcod 8-10mg/5ml 5 ML ORAL.SYRG PO SCH (10:28)
[2016-11-04] MEDS: FAMOTIDINE 20 MG TAB PO SCH (10:28)
--- NOTE | 2016-11-04 10:38 | PN ---
PROGRESS NOTE DATE OF SERVICE: 11/03/2016. REASON FOR FOLLOWUP: Pneumonia. INTERVAL HISTORY: The patient is afebrile. He has been breathing comfortably. He did have a cough which is mostly dry in nature. Pain is mostly left-sided chest pain. No abdominal pain. No nausea, vomiting, or any diarrhea. PHYSICAL EXAMINATION: Blood pressure 154/95 with a pulse of 82, temperature 97.6. He is 97% on 10 L of high- flow oxygen. General description is a middle-aged male, up in the bed in no distress. RESPIRATORY SYSTEM: Unlabored breathing. Coarse breath sounds bilaterally. No wheezes. HEART: S1, S2. Regular rate and rhythm. ABDOMEN: Soft, no tenderness. LABS: Hemoglobin is 9.3, white count is 6.7, BUN of 9, creatinine 0.44. DIAGNOSTIC IMPRESSION AND PLAN: Patient with a right-sided diffuse pneumonia. So far sputum has been Deandra albicans. Repeat sputum has been requested. Keep the patient on current dose of antibiotic in the form of meropenem and vancomycin because of his PENICILLIN allergy. Await possible transfer to [facility]. Continue supportive care. MMODL / IJN: [id number] /
[2016-11-04] MEDS: LORazepam 1 MG TAB PO PRN ×2 (12:26→18:29)
--- NOTE | 2016-11-04 13:29 | P.PN ---
Subjective 41 yo male patient was diagnosed having non-small cell lung cancer approximately 2 years ago and he has been treated at [facility] cancer [place] by Dr. Heather Aguilar. The patient lives in [place] the patient was visiting his family in [facility] where over the past 24 hours he progressively became short of breath and he presented to the emergency department yesterday with acute respiratory failure. The patient has increased cough, increased shortness of breath, increased chest congestion, cough and not copious amount of thick purulent yellowish sputum. At the same time he had become significantly lethargic and weak. He had a low-grade temperature 100.3 and currently is afebrile. He presented emergency department and the patient was given a CAT scan of the chest that showed multifocal right lung pneumonia. At the same time there was evidence of chronic left upper lobe collapse with cavitation which probably is in agreement with this history of non-small cell lung cancer. There was also a large left adrenal mass which is probably best that it from an underlying lung cancer. No evidence of any pulmonary embolism. The patient got moved to the intensive care unit. Overnight he had episodes of hypotension and he was given a total of 2 and half liters of IV fluids and currently is on a 0.9 normal saline running at 100 mL an hour. The patient is also covered with broad-spectrum antibiotics and I further adjusted antibiotics to include a combination of Merrem, vancomycin, Levaquin and micafungin was also added due to concerns of fungal pneumonia. He is quite uncomfortable. Is complaining of frequent cough and chest congestion. His white cell count is at 9.8. He is on no pressors at this point. No change in mental status. Very much lethargic. His lactic acid level was at 4.6 and femoral admission dropped down to 1.2 In terms of history of lung cancer, the patient was diagnosed approximately 2 years ago. He probably had located vessel disease and he was initially treated with a combination of chemoradiation therapy. The patient subsequently progressed and developed metastases to his brain and he has undergone craniotomy and resection of cancerous lesions and subsequent brain radiation. He also developed adrenal metastases and spinal metastases with radiation therapy. He was given systemic chemotherapy and the exact schedule of chemotherapy is not clear to me at this point. He was also given oral chemotherapy including Opdivo. He is an ex-smoker. No history of emphysema or asthma. No history of DVT or pulmonary embolism. He apparently was doing well and he was in a good state of health prior to him presenting to our emergency department. He lives in a [place] area. He lives with his who is not in the area. He is nauseated. No diarrhea. No change in mental status at this point. On 10/31/2016 I'm seeing this patient in follow-up. Note that I have already spoken to the [facility] physicians in regards to transfer. The recommendations was to keep the patient now hospital knowing that there is no ongoing oncologic a show for now. The active issue is obviously an infectious pneumonia affecting the patient's right lung. For that reason the patient was kept here in our hospital. I spoke with Dr. Seven Amezcua at [facility]. On today's evaluation, the patient is slightly short of breath a chest x-ray findings are essentially stable with extensive consolidation of the right lung in addition to chronic left apical cavitary changes. The patient is afebrile the patient is hemodynamically stable. The patient is on a combination of antibiotics including Levaquin, Merrem and vancomycin. White cell count is not elevated. His hemoglobin is down to 5.6. Rest of the electrodes are all within normal limits. No change in mental status. He is on 43 of oxygen by nasal cannula and his saturations around 92%. No significant tachycardias heart rate has improved. He is maintaining his own pressure. Urine output is adequate. The patient is also on bronchodilators and systemic steroids. On 11/01/2016 I'm seeing this patient in follow-up. The patient is acute hypoxic respiratory failure. Yesterday the patient became a bit more short of breath and hypoxic and he had to be placed on a 40% Ventimask. His pulse ox is around 91-92% on 40% Ventimask. Chest x-ray shows stable consolidation of the entire right lung. The patient remains on broad-spectrum antibiotics and he is on a combination of Merrem him on vancomycin and Levaquin. The patient had a sputum sample sent and showed some gram-positive cocci along with some budding yeasts. He is on IV fluids with normal state rate of 100 mL an hour. Receiving IV Solu-Medrol. He received a dose of Lasix and diuresed well. Mentally he is alert and awake and there is no confusion. He is profoundly weak. He had some difficulties getting up on a chair and he stayed in bed all day. Oral intake is diminished. Hemodynamically stable. On 11/02/2016, patient was reevaluated and he seems to be doing a bit better, remains on a high flow nasal cannula presently at 8 L, less short of breath, no cough, no wheezing, chest x-ray continues to show extensive consolidation in the right lung involving multiple lobes. Patient remains on broad-spectrum antibiotics as noted below.. Still receiving Solu-Medrol and bronchodilators. Overall, the patient is clinically better, but chest x-ray is practically about the same. Labs were reviewed WBC count is 6.3 hemoglobin is 9.2. Electrolytes and renal profile are relatively normal. His O2 flow was titrated down from 15 L nasal cannula to 8 L today. Antibiotics fontana, patient remains on Levaquin, Merrem, and vancomycin. Discussed with the patient today possibly transferring him if accepted to [facility], however will discuss with his admitting physician plans and hopefully they will have a bed available for him. Otherwise I would likely keep the patient in the ICU for the next 24 hours, transferred to a medical floor in the next 24 hours, and still consider transfer plans over the next 24 hours assuming he will be accepted to a regular medical floor. Reevaluated today on 11/03/2016, patient continues to improve clinically, less shortness of breath, less cough, less respiratory distress, however his chest x- ray is about the same or possibly a slight improvement noted. Patient remains on high flow nasal cannula and at times he is on a 40% Ventimask. He remains on all the same medications including bronchodilators antibiotics and steroids. His labs were reviewed and he has a relatively normal CBC except for hemoglobin of 9.3. Potassium is 3.3 being corrected as per protocol. Renal profile is normal. The patient is seen again today 11/04/2016 in follow-up on the oncology unit. He is awake and alert in no acute distress. He is breathing much easier today as compared to yesterday. He is down to 10 L of high flow to maintain O2 saturations in the 90s. He denies any fever, chills or night sweats. Sputum only revealed Deandra. Blood cultures and urine cultures revealed no growth to date. No leukocytosis. Hemoglobin 9.7. Platelet count 277,000. Yesterday's chest x-ray continued to show diffuse airspace disease bilaterally but stable Objective - Vital Signs Vital signs: Vital Signs Temp 97.8 F 11/04/16 07:00 Pulse 88 11/04/16 11:36 Resp 20 11/04/16 07:00 BP 157/98 11/04/16 07:00 Pulse Ox 98 11/04/16 07:00 Intake & Output 11/03/16 11/04/16 11/04/16 18:59 06:59 18:59 Intake Total 325 1640 Output Total 500 1900 Balance -175 -260 Weight 70.2 kg Intake: IV 325 800 Levofloxacin 750Mg-D5w 150 Pmx 750 mg In Dextrose/ Water 1 150ml.bag @ 100 mls/hr IVPB Q24H [facility] Rx#: [id number] Meropenem 1 gm In Sodium 100 100 Chloride 0.9% 100 ml @ 200 mls/hr IVPB Q8HR [facility] Rx#:[id number] Sodium Chloride 0.9% 1, 100 300 000 ml @ 50 mls/hr IV . Q20H [facility] Rx#:[id number] Vancomycin 1,250 mg In 125 250 Sodium Chloride 0.9% 250 ml @ 125 mls/hr IVPB Q8H [facility] Rx#:[id number] Oral 840 Output: Urine 500 1900 Other: Voiding Method Urinal Urinal # Voids 2 - Exam Head exam was generally normal. There was no scleral icterus or corneal arcus. Mucous membranes were moist. Scars of previous craniotomy seen over the left forehead area.Neck was supple and without jugular venous distension, thyromegaly , or carotid bruits. Carotids were easily palpable bilaterally. There was no adenopathy. Lung sounds are diminished and there is diffuse and rhonchi and crackles involving the right lung compared to the left. There is also prolongation of expiratory phase of breathing and scattered expiratory wheezes throughout the lung fernandez bilaterally. Patient's breathing is less labored in terms of his breathing and is not using excessive muscle breathing.Cardiac exam revealed the PMI to be normally situated and sized. The rhythm was regular and no extrasystoles were noted during several minutes of auscultation. The first and second heart sounds were normal and physiologic splitting of the second heart sound was noted. There were no murmurs, rubs, clicks, or gallops.Abdominal exam revealed normal bowel sounds. The abdomen was soft, non- tender, and without masses, organomegaly, or appreciable enlargement of the abdominal aorta.Examination of the extremities revealed easily palpable radial, femoral and pedal pulses. There was no cyanosis, clubbing or edema. - Labs CBC & Chem 7: 11/04/16 05:46 11/04/16 05:46 Labs: Abnormal Lab Results - Last 24 Hours (Table) 11/04/16 11/04/16 Range/Units 05:46 05:46 RBC 3.54 L (4.30-5.90) m/uL Hgb 9.7 L (13.0-17.5) gm/dL Hct 30.9 L (39.0-53.0) % RDW 17.9 H (11.5-15.5) % Lymphocytes # 0.1 L (1.0-4.8) k/uL Sodium 135 L (137-145) mmol/L Potassium 3.4 L (3.5-5.1) mmol/L Chloride 97 L (98-107) mmol/L Carbon Dioxide 34 H (22-30) mmol/L Creatinine 0.44 L (0.66-1.25) mg/dL Glucose 136 H (74-99) mg/dL Calcium 8.2 L (8.4-10.2) mg/dL Microbiology - Last 24 Hours (Table) 10/30/16 00:35 Blood Culture - Preliminary Blood No Growth after 120 hours 10/29/16 20:50 Blood Culture - Preliminary Blood No Growth after 120 hours Assessment and Plan Plan: 1 extensive right lung pneumonia. The patient has extensive multi-lobar/ multifocal consolidation of the right lung which is most likely a presentation of an underlying acute pneumonia. There is areas of consolidation and groundglass changes more predominant in the upper lobes and in the middle lobe. The patient also has chronic cavitary changes in the left upper lobe which probably is chronic than acute. Rule out routine community acquired pathogens. Rule out gram-negative and staphylococcal pneumonia. Rule out fungal pneumonia especially with a chronic cavitary changes on the left. The patient was apparently hospitalized on multiple occasions and the possibility of hospital-acquired pathogen cannot be completely excluded. On 10/31/2016, the patient looks slightly more stable compared to yesterday. His improved and is less labored in terms of his breathing. Nevertheless the chest x-ray still showing extensive consolidation of the right lung and was still awaiting further sputum and blood cultures. Meanwhile the patient is still covered with the same broad-spectrum antibiotic coverage. Hemodynamically stable. On 11/01/2016, the patient is still on 40% Ventimask. Chest x-ray findings are essentially stable for now. Cultures had not been yielded for any positive microbial growth. Legionella urine antigen has been sent. On 11/02/2016, patient is now on high flow nasal cannula at 8 L/m. O2 saturations are in the mid 90s. Chest x-ray is basically about the same. Sputum so far seems to be nondiagnostic. On 11/03/2016, patient continues to clinically improve, chest x-ray is about the same or possibly a slight improvement is noted. Hence I will arrange for the patient be transferred out of the ICU to a regular medical floor, in the meantime we'll continue to address the issue of transfer to [facility]. On 11/04/2016 the patient is seen in follow-up in the oncology unit. He is improved clinically. He is down to 10 L high flow nasal cannula to maintain O2 saturations in the 90s. His chest x-ray yesterday showed slight improvement in the right. 2 acute hypoxic respiratory failure secondary to above 3 non-small cell lung cancer, metastatic with metastases to his brain, left adrenal gland and spine. The exact details of the treatment was offered to this patient is not available however the patient admits of taking chemoradiation therapy to his chest and subsequent palliative radiation therapy to metastatic foci. 4 anemia, likely chronic 5 lactic acidosis resolved. Plan: The patient was seen and evaluated by Dr. Moser. If the patient is not transferred we'll repeat a chest x-ray in the a.m. We'll continue with his current antibiotics, bronchodilators and steroids. We'll continue to titrate down his FiO2 will maintaining O2 saturations greater than 92%. We'll continue to follow and make further recommendations based on his clinical status.
[2016-11-04 15:13] VITALS: BP 109/67; RESP 18; TEMP 97.9
--- NOTE | 2016-11-04 15:20 | PN ---
PROGRESS NOTE DATE OF SERVICE: 11/04/2016 He has been hemodynamically stable. He is less short of breath. PHYSICAL EXAMINATION: His respiratory rate is 20, pulse rate is 76, temperature 97.8, blood pressure 157/98, O2 saturation on 10 L by high-flow cannula is 98%. HEENT is unremarkable. Chest reveals rhonchi on the right. Cardiovascular system reveals an S1, S2. Abdomen is soft. There is no edema. Sodium is 135, potassium 3.4, chloride 97, bicarb 34, BUN 9, creatinine 0.44. White count of 6.8, hemoglobin of 9.7. IMPRESSION: Right-sided pneumonia, most likely secondary to aspiration. Increase his activity level. Agree with possible transfer to [facility] and [facility]. Continue him on his current medications which were reviewed. MMODL / IJN: [id number] /
[2016-11-04 15:31] VITALS: PULSE 84
--- NOTE | 2016-11-04 15:47 | P.DS ---
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 The patient was visiting family in [place] area. Patient is admitted with a severe right lower lobe pneumonia possibly gram-negative with sepsis and acute hypoxic respiratory failure to [facility]. Patient was monitored in ICU. Patient was treated with BiPAP and Ventimask up and broad-spectrum IV antibiotics. Patient was seen by monotype caster Dr. Moser and infection disease. Patient was treated with vancomycin and Levaquin and meropenem. On exam vitals stable. S1-S2 normal. Respirator system few rhonchi and crackles. Breath sounds diminished on the right side. Abdomen soft nontender. Nervous system no focal deficit. I've discussed the case with multiple physicians and oncologist and [facility] and the patient be transferred to [facility] in a stable condition with guarded prognosis. Total time 36 minutes. Final diagnosis 1. Acute right lower lower lobe pneumonia possibly gram-negative with sepsis and acute hypoxic respiratory failure present on admission. 2. Non-small cell lung cancer status post chemotherapy. 3. History of metastatic brain lesion. 4. Anemia normocytic anemia of malignancy. Patient Condition at Discharge: Fair Plan - Discharge Summary New Discharge Prescriptions: No Action oxyCODONE HCL 30 mg PO QID PRN PRN Reason: Pain fentaNYL 50MCG/HR PATCH [Duragesic 50MCG/HR] 1 patch TRANSDERM Q72H fentaNYL 100MCG/HR PATCH [Duragesic 100MCG/HR] 1 patch TRANSDERM Q72H Ibuprofen [Motrin] 800 mg PO BID PRN PRN Reason: Pain Discharge Medication List Ibuprofen [Motrin] 800 mg PO BID PRN 10/29/16 [History] fentaNYL 100MCG/HR PATCH [Duragesic 100MCG/HR] 1 patch TRANSDERM Q72H 10/29/16 [ History] fentaNYL 50MCG/HR PATCH [Duragesic 50MCG/HR] 1 patch TRANSDERM Q72H 10/29/16 [ History] oxyCODONE HCL 30 mg PO QID PRN 10/29/16 [History] Follow up Appointment(s)/Referral(s): None,Stated [Primary Care Provider] - 1-2 days
[2016-11-04] MEDS ORDERED: LEVOFLOXACIN 750 MG TAB PO SCH (21:00)
[2016-11-05] MEDS ORDERED: VANCOMYCIN TROUGH DUE 1 EACH MISC MISCELLANE ONE (05:00)
--- NOTE | 2016-11-05 09:09 | PN ---
PROGRESS NOTE DATE OF SERVICE: 11/04/2016 REASON FOR FOLLOW UP: Possible gram-negative pneumonia. INTERVAL HISTORY: The patient was seen on round this morning where patient was breathing slightly comfortable. The patient denies any worsening chest pain. He did have some mild cough, not bringing up any sputum. No nausea or vomiting. No abdominal pain. No diarrhea. PHYSICAL EXAMINATION: On examination, blood pressure 109/67 with a pulse of 83, temperature 97.9. He is 95% on 8 L high flow oxygen. General description is a middle aged male up in the bed in no distress. RESPIRATORY SYSTEM: Unlabored breathing. Some coarse breath sounds left side. No wheeze. HEART: S1, S2. Regular rate and rhythm. ABDOMEN: Soft, no tenderness. LABS: Hemoglobin 9.7, white count 6.8 with a BUN of 9 creatinine 0.44. Culture so far negative for resistant pathogen. DIAGNOSTIC IMPRESSION AND PLAN: Patient with metastatic lung cancer admitted to hospital with a right-sided pneumonia. Currently has been treated with broad-spectrum antibiotic in form of meropenem, vancomycin and Levaquin. Patient will be transferred to [facility] today. Will continue on these antibiotics until the patient is evaluated by the ID service at that facility. MMODL / IJN: [id number] /
--- NOTE | 2016-11-11 10:59 | PN ---
PROGRESS NOTE DATE OF SERVICE: 11/03/2016 HISTORY OF PRESENT ILLNESS: Patient is a 41-year-old male who is being followed for problems with aspiration type pneumonia with sepsis and a history of lung cancer with metastatic disease. The patient is seen today. He is being prepared to be transferred to the oncology unit out of the ICU. He states that he is still having some problems with chest pain. He states he has been eating okay, nonproductive cough. He states he has been going to the bathroom okay. Voices no changes or difficulty with his breathing at this time. He is somewhat sleepy. PHYSICAL EXAMINATION: On physical examination, his vital signs show temperature 98.4, heart rate 60, respiratory rate 24, blood pressure 143/90, oxygen saturation on Venturi mask was 93. Labs show a WBC 6.7, hemoglobin 9.3, hematocrit 30, platelets are 259. Sodium is 135, potassium 3.3, chloride 99, CO2 is 32, BUN 9, creatinine 0.44. Glucose 123. Calcium 8.1. Phosphorus 2.7. Magnesium 2. Sputum showing Deandra. Blood cultures with no growth. Chest x-ray with diffuse airspace disease bilaterally. GENERAL: He is a 41-year-old male who appears relatively comfortable at this time. HEENT: Pupils are reactive. Mucous membranes somewhat dry. Neck is supple. No JVD. Lung sounds diminished slightly coarse, more on the right than the left. Some rales with prolonged expiration and few expiratory wheezes. CARDIOVASCULAR: S1, S2 is heard. Regular. ABDOMEN: Soft, nontender. EXTREMITIES: Palpable pulses. No edema. NEUROLOGIC: He is lethargic but does respond. IMPRESSION: 1. Pneumonia. 2. Acute hypoxic respiratory failure. 3. Metastatic non-small cell lung cancer. 4. Anemia. PLAN: Continue patient with his present nebulizer treatments. Continue with GI and DVT prophylaxis. Continue with tapering steroids and continue with antibiotics. The patient is being transferred out of ICU to oncology unit. The patient to possibly be transferred to [facility]. We will continue to follow the patient with you and make further changes as necessary. MMODL / IJN: [id number] /
== END 2016-11-04 18:35 | disposition other institution (70) | DRG 871 ==
LOC: EC 20:52 → 6SEL 10-30 → 6ICU 10-30 02:50 → 5ONC 11-03 11:49
PROVIDERS: ADMIT Hospitalist; ATTEND Hospitalist
DX: A41.9 Sepsis, unspecified organism (principal); J69.0 Pneumonitis due to inhalation of food and vomit; J96.01 Acute respiratory failure with hypoxia; R65.21 Severe sepsis with septic shock; J15.6 Pneumonia due to other Gram-negative bacteria; E87.2 Acidosis; C79.31 Secondary malignant neoplasm of brain; C34.90 Malignant neoplasm of unspecified part of unspecified bronchus or lung; D63.0 Anemia in neoplastic disease; C79.51 Secondary malignant neoplasm of bone; C79.72 Secondary malignant neoplasm of left adrenal gland; J98.19 Other pulmonary collapse; Z87.891 Personal history of nicotine dependence; E87.6 Hypokalemia; E87.70 Fluid overload, unspecified; T45.1X5A Adverse effect of antineoplastic and immunosuppressive drugs, initial encounter; Y95 Nosocomial condition; Z77.090 Contact with and (suspected) exposure to asbestos; Z82.5 Family history of asthma and other chronic lower respiratory diseases; Z86.73 Personal history of transient ischemic attack (TIA), and cerebral infarction without residual deficits; Z88.0 Allergy status to penicillin; Z92.3 Personal history of irradiation; Z92.21 Personal history of antineoplastic chemotherapy; Z79.02 Long term (current) use of antithrombotics/antiplatelets; Z79.891 Long term (current) use of opiate analgesic; Z79.899 Other long term (current) drug therapy
CPT/HCPCS: 36415; 71010; 71020; 71275; 80048; 80053; 80202; 81001; 82550; 82553; 83605; 83735; 83880; 84100; 84132; 84484; 85025; 85379; 85610; 85730; 87040; 87070; 87086; 87205; 87449; 93005; 94640; 94644; 96361; 96365; 96368; 96374; 99285

== ENCOUNTER 2017-03-19 19:29 | Inpatient (IN) | payer MEDICARE, OTHER ==
[2017-03-19] MEDS ORDERED: HYDROmorphone 2 MG/ML 1 ML SYRINGE IVP STA ×3 (19:55→22:23)
--- NOTE | 2017-03-19 20:01 | ED ---
Back Pain HPI - General Chief Complaint: Back Pain/Injury Stated Complaint: General Weakness Time Seen by Provider: 03/19/17 19:38 Source: EMS Limitations: physical limitation - History of Present Illness Initial Comments: patient is a 41-year-old male with a history of metastatic lung cancer who presents with chief complaint of back pain. Patient states that the pain has been going on for months however it is acutely worse today. Patient cannot identify an inciting incident. There are no aggravating or alleviating factors. Timing is constant. The patient characterizes his pain as dull, achy , burning, and stabbing. Patient states he takes oxycodone at home for pain but it is not working. Patient is currently being seen by oncology at [facility] however he recently decided to stop treatment. the patient does not have any further plans for treatment, nor has he contacted palliative services or hospice service. On initial evaluation, patient is in no acute distress, vital signs are stable. - Related Data Home Medications Medication Instructions Recorded Confirmed oxyCODONE HCL 30 - 60 mg PO Q3H PRN 10/29/16 03/19/17 Albuterol Inhaler [Ventolin Hfa 1 puff INHALATION RT-Q6H PRN 03/19/17 03/19/17 Inhaler] Budesonide/Formoterol Fumarate 2 puff INHALATION RT-BID 03/19/17 03/19/17 [Symbicort 160-4.5 Mcg Inhaler] Ciprofloxacin HCl [Cipro] 500 mg PO BID 03/19/17 03/19/17 DULoxetine HCL [Cymbalta] 60 mg PO DAILY 03/19/17 03/19/17 Dexamethasone 4 mg PO DAILY 03/19/17 03/19/17 Gabapentin 600 mg PO TID 03/19/17 03/19/17 LORazepam [Ativan] 0.5 mg PO BID PRN 03/19/17 03/19/17 Methadone [Dolophine] 10 mg PO BID 03/19/17 03/19/17 Ondansetron HCl [Zofran] 4 mg PO Q8H PRN 03/19/17 03/19/17 Pantoprazole Sodium [Protonix] 40 mg PO DAILY 03/19/17 03/19/17 Tiotropium 18 Mcg/Puff [Spiriva] 1 cap INHALATION RT-DAILY 03/19/17 03/19/17 oxyCODONE ER [OxyCONTIN 20MG E.R] 20 mg PO TID 03/19/17 03/19/17 oxyCODONE ER [OxyCONTIN 80MG E.R] 80 mg PO TID 03/19/17 03/19/17 Allergies Allergy/AdvReac Type Severity Reaction Status Date / Time Penicillins Allergy Anaphylaxis Verified 03/19/17 20:19 Review of Systems ROS Statement: Those systems with pertinent positive or pertinent negative responses have been documented in the HPI. ROS Other: All systems not noted in ROS Statement are negative. Musculoskeletal: Reports: back pain Past Medical History Past Medical History: Cancer Additional Past Medical History / Comment(s): lung bilat adrenal gland History of Any Multi-Drug Resistant Organisms: None Reported Additional Past Surgical History / Comment(s): wrist, ankle, lung Past Anesthesia/Blood Transfusion Reactions: No Reported Reaction Past Psychological History: No Psychological Hx Reported Smoking Status: Former smoker Past Alcohol Use History: None Reported Past Drug Use History: None Reported - Past Family History Father Family Medical History: COPD General Exam Limitations: physical limitation General appearance: alert, in no apparent distress Head exam: Present: atraumatic, normocephalic Eye exam: Present: normal appearance Respiratory exam: Present: normal lung sounds bilaterally. Absent: respiratory distress Cardiovascular Exam: Present: regular rate, normal rhythm GI/Abdominal exam: Present: soft. Absent: distended, tenderness Rectal exam: Present: deferred Extremities exam: Present: normal inspection Back exam: Present: CVA tenderness (R), CVA tenderness (L), muscle spasm, paraspinal tenderness Neurological exam: Present: alert, oriented X3, abnormal gait (patient does not walk well secondary to physical deconditioning.) Psychiatric exam: Present: normal affect, normal mood Skin exam: Present: warm, dry, intact Course Vital Signs 03/19/17 03/19/17 19:31 21:47 Temperature 99.1 F Pulse Rate 95 89 Respiratory 17 17 Rate Blood Pressure 139/90 127/86 O2 Sat by Pulse 95 95 Oximetry Medical Decision Making - Medical Decision Making patient with history of metastatic lung cancer presents with a chief complaint back pain. On initial evaluation, vital signs are stable. Patient with basic labs, and urinalysis. Patient will go for a computed tomography scan of the abdomen and pelvis without contrast. 11:02 PM Laboratory evaluation this patient is unremarkable. CT evaluation shows extensive metastatic disease with a new T11 compression fracture with 30% decrease in vertebral height. I discussed the findings with the patient and his family. I spent time at length talking to them about treatment options including palliative care and hospice. At this time, the patient and his family would like to pursue admission for pain control and consult hospice. I discussed the case with Dr. Etienne who is agreeable to the care plan. Patient will be admitted for pain control. He remained stable in the emergency department. - Lab Data Result diagrams: 03/19/17 20:47 03/19/17 20:47 Lab Results 03/19/17 03/19/17 Range/Units 20:47 20:47 WBC 13.7 H (3.8-10.6) k/uL RBC 4.06 L (4.30-5.90) m/uL Hgb 10.7 L (13.0-17.5) gm/dL Hct 35.2 L (39.0-53.0) % MCV 86.8 (80.0-100.0) fL MCH 26.3 (25.0-35.0) pg MCHC 30.4 L (31.0-37.0) g/dL RDW 17.5 H (11.5-15.5) % Plt Count 418 (150-450) k/uL Neutrophils % 93 % Lymphocytes % 1 % Monocytes % 5 % Eosinophils % 0 % Basophils % 0 % Neutrophils # 12.7 H (1.3-7.7) k/uL Lymphocytes # 0.2 L (1.0-4.8) k/uL Monocytes # 0.7 (0-1.0) k/uL Eosinophils # 0.1 (0-0.7) k/uL Basophils # 0.0 (0-0.2) k/uL Hypochromasia Marked Anisocytosis Slight Sodium 133 L (137-145) mmol/L Potassium 4.0 (3.5-5.1) mmol/L Chloride 96 L (98-107) mmol/L Carbon Dioxide 25 (22-30) mmol/L Anion Gap 12 mmol/L BUN 18 (9-20) mg/dL Creatinine 0.47 L (0.66-1.25) mg/dL Est GFR (MDRD) Af Amer >60 (>60 ml/min/1.73 sqM) Est GFR (MDRD) Non-Af >60 (>60 ml/min/1.73 sqM) Glucose 95 (74-99) mg/dL Calcium 9.1 (8.4-10.2) mg/dL Disposition Clinical Impression: Compression fracture of body of thoracic vertebra, Metastatic lung cancer ( metastasis from lung to other site), Lytic lesion of bone on x-ray Disposition: ADMITTED IP TO THIS HOSP Condition: Good Referrals: None,Stated [Primary Care Provider] - 1-2 days Decision to Admit Reason: Admit from EC - Out of Hospital Transfer - Req. Specs Out of Hospital Transfer - Requested Specifics: Other Non-Acute
[2017-03-19 21:01] LABS: Anisocytosis Slight; Basophils % (A) 0 %; Eosinophils # (A) 0.1 k/uL (0-0.7); Eosinophils % (A) 0 %; HCT 35.2 % (39.0-53.0); HGB 10.7 gm/dL (13.0-17.5); Hypochromasia Marked; Lymphocytes # (A) 0.2 k/uL (1.0-4.8); Lymphocytes % (A) 1 %; MCH 26.3 pg (25.0-35.0); MCHC 30.4 g/dL (31.0-37.0); MCV 86.8 fL (80.0-100.0); Mean Platelet Volume 7.9; Monocytes # (A) 0.7 k/uL (0-1.0); Monocytes % (A) 5 %; Neutrophils # (A) 12.7 k/uL (1.3-7.7); Neutrophils % (A) 93 %; Platelet Count 418 k/uL (150-450); RBC 4.06 m/uL (4.30-5.90); RDW 17.5 % (11.5-15.5); WBC 13.7 k/uL (3.8-10.6)
[2017-03-19 21:13] LABS: Anion Gap 12 mmol/L; Blood Urea Nitrogen 18 mg/dL (9-20); Calcium 9.1 mg/dL (8.4-10.2); Carbon Dioxide 25 mmol/L (22-30); Chloride 96 mmol/L (98-107); Glucose 95 mg/dL (74-99); Sodium 133 mmol/L (137-145)
--- NOTE | 2017-03-19 22:01 | CT ---
EXAMINATION TYPE: CT renal stones wo con DATE OF EXAM: 03/19/2017 COMPARISON: NONE HISTORY: 40-year-old male with history of Adrenal gland CA and Lung base CA. Complaining of back pain TECHNIQUE: Contiguous axial scanning of the abdomen and pelvis without IV contrast. Coronal and sagit soledad reconstructions performed. CT DLP: 327.20 mGycm Automated exposure control for dose reduction was used. FINDINGS: Heart normal size. Trace pericardial effusion measuring 5 mm. Focal 1.5 cm density peripheral left ba se is new. There is trace left effusion. Noncontrast appearance of the liver, gallbladder, left kidney, and spleen within normal limits. The p ancreas body and tail is displaced anteriorly secondary to a very large heterogeneous mass measuring 9.9 cm wide by 11.9 cm AP by 9.9 cm craniocaudal likely arising from the left adrenal gland. This als o displaces the gastric body anteriorly and abuts the anterior margin of the left kidney and displace s multiple bowel loops as well. A 3.1 cm soft tissue nodule at the anterior left base pericardiac fat interposed between the anterior leaf of the left hemidiaphragm and chest wall in retrospect measured on the 1.5 cm. Additional thoracic/abdominal wall soft tissue mass located left anterolaterally along the left subco stal margin measuring 7.6 x 4.5 x 5.2 cm was beyond the field of view on prior exam. A few punctate 1 to 2 mm calculi in the upper pole right kidney. No hydronephrosis on either side. No dilated small bowel, free fluid, or free air. Moderate stool burden. Bladder urine distended. There is a destructive soft tissue mass involving the sacrum at S2 level and below measuring 5.7 cm c raniocaudal, 7.0 cm wide, and 4.0 cm AP dimension. Bones: Age indeterminate, possibly chronic bilateral sacral alar insufficiency fractures. There is a new T11 vertebral compression deformity with 30% overall height loss but no retropulsion i nto the spinal canal. No significant paravertebral hematoma. Findings probably chronic but several ne w from 10/29/2016. IMPRESSION: 1. DISEASE PROGRESSION FROM 10/29/2016. THE PREVIOUS LEFT ADRENAL MASS IS NOW VERY LARGE MEASURING 11.9 X 9.9 CENTIMETERS DISPLACING MULTIPLE LEFT UPPER QUADRANT STRUCTURES. 2. LEFT PERICARDIAC LYMPH NODE ENLARGED MEASURING 3.1 CM VERSUS 1.5 CM, PREVIOUSLY. 3. LEFT SUBCOSTAL CHEST/ABDOMINAL WALL MASS MEASURES 7.6 x 5.2 CM AND WAS PREVIOUSLY OUTSIDE THE FIEL D OF VIEW ON 10/29/2016. 4. DESTRUCTIVE SACRAL METASTASIS MEASURING UP TO 7.0 X 5.7 CM. 5. T11 VERTEBRAL COMPRESSION DEFORMITY NEW FROM 10/29/2016 WITH 30% OVERALL HEIGHT LOSS BUT STILL FELT TO BE EITHER SUBACUTE OR CHRONIC. 6. A FEW PUNCTATE 1 TO 2 MM CALCULI UPPER POLE RIGHT KIDNEY. NO HYDRONEPHROSIS ON EITHER SIDE.
[2017-03-19] MEDS ORDERED: KETOROLAC 30 MG/ML 1 ML VIAL IVP PRN (22:33)
[2017-03-19] MEDS ORDERED: ONDANSETRON 4 MG/2 ML VIAL IVP PRN (22:33)
[2017-03-19] MEDS ORDERED: NALOXONE 0.4 MG/ML 1 ML VIAL IV PRN (22:33)
[2017-03-19 23:34] VITALS: RESP 16
[2017-03-20] MEDS ORDERED: LORazepam 0.5 MG TAB PO PRN (00:14)
[2017-03-20] MEDS ORDERED: ALBUTEROL NEBULIZED 2.5 MG/3 ML INHALATION PRN (00:14)
[2017-03-20] MEDS: HYDROmorphone 2 MG/ML 1 ML SYRINGE IVP PRN ×5 (00:53→20:26)
[2017-03-20] MEDS: SYMBICORT 160-4.5 MCG INHALER INHALATION SCH ×2 (07:03→20:55)
[2017-03-20] MEDS: IPRATROPIUM 0.5 MG/2.5 ML NEBU INHALATION SCH ×4 (07:03→20:56)
[2017-03-20] MEDS: GABAPENTIN 300 MG CAP PO SCH ×3 (08:05→21:18)
[2017-03-20] MEDS: DEXAMETHASONE 4 MG TAB PO SCH (08:05)
[2017-03-20] MEDS: CIPROFLOXACIN HCL 500 MG TAB PO SCH ×2 (08:05→21:19)
[2017-03-20] MEDS: DULoxetine HCL 60 MG CAPSULE.DR PO SCH (08:05)
[2017-03-20] MEDS: PANTOPRAZOLE 40 MG TABLET PO SCH (08:06)
[2017-03-20 08:29] LABS: Amorphous Sediment,Urine Occasional /hpf; Appearance,Urine Cloudy (Clear); Bacteria,Urine Few /hpf; Bilirubin,Urine 1+ (Negative); Blood,Urine Negative (Negative); Calcium Oxalate Crystals,Urine Rare /hpf; Color,Urine Yellow; Glucose,Urine (UA) Negative (Negative); Ketones,Urine 3+ (Negative); Leukocyte Esterase,Urine Negative (Negative); Mucus,Urine Rare /hpf; Nitrite,Urine Negative (Negative); PH, Urine 6.5 (5.0-8.0); Protein,Urine Trace (Negative); Specific Gravity,Urine 1.017 (1.001-1.035)
--- NOTE | 2017-03-20 09:47 | HP ---
HISTORY AND PHYSICAL DATE OF SERVICE: 03/19/2017 CHIEF COMPLAINTS: Back pain and as well as cough. HISTORY OF PRESENT ILLNESS: This is a 41-year-old gentleman with a past medical history of multiple medical problems including metastatic lung cancer with bilateral adrenal glands and brain mets was recently admitted to [facility] and subsequently patient was transferred to [facility]. Patient had right lower pneumonia at that time with sepsis and acute hypoxic respiratory failure. The patient also had anemia. Apparently patient the patient is having back pain which is radiating to both sides with some weakness, which is getting worse. The patient decided to stop therapy from oncology and [facility] at this time. The evaluation in the ER had a renal CT done which showed disease progression from 03/19/2016 and left adrenal mass lesion was very large and the left pericardial lymph node was also noted and multiple abnormalities including T11 vertebral compression was also noted. The patient admitted for evaluation and treatment. The patient is currently NO CODE, NO CPR, NO VENT. There is no history of fever, rigors, chills at this time. PAST MEDICAL HISTORY: History of lung cancer with METS as mentioned, history of back surgery, DJD. MEDICATIONS: 1. Oxycodone 30-60 mg q.3h p.r.n. 2. Spiriva 18 mcg daily. 3. Protonix 40 mg daily. 4. Zofran 4 mg q.8h p.r.n. 5. Methadone 10 mg p.o. b.i.d. 6. Ativan 0.5 mg b.i.d. p.r.n. 7. Gabapentin 60 mg p.o. t.i.d. 8. Dexamethasone 4 mg p.o. daily. 9. Cymbalta 60 mg p.o. 10.Cipro 500 mg p.o. b.i.d. 11.Symbicort 4.2 puffs b.i.d. 12.Albuterol 1 puff q.6h p.r.n. ALLERGIES: PENICILLIN. FAMILY HISTORY: History of COPD in the family. SOCIAL HISTORY: No history of smoking, no history of alcohol. REVIEW OF SYSTEMS: ENT: No diminished hearing or vision. CARDIOVASCULAR: No angina. RESPIRATORY: As mentioned earlier. GI: No nausea. : No dysuria. NERVOUS SYSTEM: No numbness or weakness. ALLERGY/IMMUNOLOGY: No asthma. MUSCULOSKELETAL: As mentioned earlier. HEMATOLOGY: No history of anemia. ENDOCRINE: Mentioned earlier. CONSTITUTIONAL: As mentioned earlier. DERMATOLOGY: Negative. RHEUMATOLOGY: Negative. PSYCHIATRY: As mentioned earlier. PHYSICAL EXAMINATION: Alert and oriented x3. Pulse 91, blood pressure 130/89, respiration 17, temp 99.1, pulse ox 94% on room air. HEENT: Conjunctivae normal. Oral mucosa moist. NECK: No jugular venous distention. No carotid bruit. No lymph node enlargement. CARDIOVASCULAR: S1, S2. RESPIRATORY: Breath sounds diminished in the bases. Bilateral scattered rhonchi and crackles. Expiratory wheezing also present. ABDOMEN: Soft, nontender. No mass palpable. LEGS: No edema, no cyanosis. NERVOUS SYSTEM: Higher function as mentioned, upper limbs are normal, lower limbs grade 3 to 4. LYMPHATICS: No lymphadenopathy in the neck, axillae, groin. SKIN: No ulcer, rash, bleeding. LAB STUDIES: At this time shows the WBC 13.2, hemoglobin 10.7, sodium 133. ASSESSMENT: 1. Severe back pain with possibly vertebral metastasis with T11 compression fracture. 2. Lung cancer with metastasis. 3. History of recent pneumonia with sepsis and acute hypoxic respiratory failure. 4. Anemia normocytic anemia of malignancy. 5. Multiple adrenal metastasis. 6. Disease progression on new CAT scan. 7. Hyponatremia. 8. Increased WBC. 9. Anemia of malignancy. 10.NO CODE, NO CPR, NO VENT. RECOMMENDATIONS AND DISCUSSION: In this 41-year-old gentleman who presented with multiple complex medical issues, will monitor the patient closely. Continue the current management and symptomatic treatment. Otherwise I would recommend continue the current medications. Continue the home medications and I had a detailed discussion with the patient and family at this time. We will obtain a hospice evaluation as well. Otherwise the prognosis guarded because of multiple complex medical issues. Further recommendations to follow. We will also follow pain management as well. IV Dilaudid has been arranged at this time. Once again, discussed with the patient and family. Further recommendations to follow. MMODL / IJN: [id number] /
--- NOTE | 2017-03-20 18:20 | PN ---
PROGRESS NOTE DATE OF SERVICE: 03/20/2017 This 41-year-old gentleman who was admitted after generalized weakness and tiredness, also had carcinoma of the lung with multiple METS also. The family is also contemplating possible comfort measures and hospice also. No chest pain. No palpitations. No fever. EXAM: Alert and oriented times three. Pulse is 124, blood pressure 133/60, respiration 16, temperature is normal. Pulse ox 93% on room air. HEENT: Conjunctivae normal. Neck is no jugular venous distention. CARDIOVASCULAR: S1, S2 muffled. Respiratory: Breath sounds diminished in the bases. A few rhonchi. No crackles. Abdomen is soft, nontender. Nervous system: Diffusely weak. LABS: Not available except UA. ASSESSMENT: 1. Severe back pain with possible vertebral metastasis with T11 compression fracture. 2. Lung cancer with metastasis. 3. History of recent pneumonia with sepsis and acute hypoxic respiratory failure. 4. Anemia normocytic anemia of malignancy. 5. History of multiple adrenal metastasis. 6. Disease progression on the new CAT scan. 7. Hyponatremia. 8. Increased WBC. 9. Anemia of malignancy. 10.NO CODE, NO CPR, NO VENT. RECOMMENDATIONS AND DISCUSSION: I recommend to continue current medications, symptomatic treatment. Otherwise, at this time I recommend continue with current medications. Hospice. Comfort measures. Discussed with family and further recommendations to follow. MMODL / IJN: [id number] /
[2017-03-21 07:25] VITALS: BP 119/86; TEMP 98.2
[2017-03-21] MEDS: HYDROmorphone 2 MG/ML 1 ML SYRINGE IVP PRN ×3 (07:59→14:34)
[2017-03-21] MEDS: GABAPENTIN 300 MG CAP PO SCH (08:11)
[2017-03-21] MEDS: DULoxetine HCL 60 MG CAPSULE.DR PO SCH (08:11)
[2017-03-21] MEDS: CIPROFLOXACIN HCL 500 MG TAB PO SCH (08:11)
[2017-03-21] MEDS: PANTOPRAZOLE 40 MG TABLET PO SCH (08:11)
[2017-03-21] MEDS: DEXAMETHASONE 4 MG TAB PO SCH (08:11)
[2017-03-21] MEDS: SYMBICORT 160-4.5 MCG INHALER INHALATION SCH (09:17)
[2017-03-21] MEDS: IPRATROPIUM 0.5 MG/2.5 ML NEBU INHALATION SCH ×2 (09:17→13:23)
[2017-03-21 11:22] VITALS: BMI 17.8
[2017-03-21 13:32] VITALS: PULSE 106
[2017-03-21] MEDS ORDERED: oxyCODONE ER 80 MG TAB.ER.12H PO SCH (16:00)
[2017-03-21] MEDS ORDERED: oxyCODONE ER 20 MG TAB.ER.12H PO SCH (16:00)
--- NOTE | 2017-03-22 10:07 | DS ---
DISCHARGE SUMMARY DATE OF SERVICE: 03/21/2017. FINAL DIAGNOSES: 1. Severe back pain, possible vertebral metastasis with T11 compression fracture with severe pain. 2. Lung cancer with metastases. 3. History of recent pneumonia with sepsis and acute hypoxic respiratory failure. 4. History of anemia, normocytic anemia of malignancy. 5. History of multiple adrenal metastasis. 6. NO CODE, NO CARDIOPULMONARY RESUSCITATION, NO VENTILATOR. 7. Comfort measures, no hospice. DISCHARGE DISPOSITION: The patient will be discharged in a stable condition with guarded prognosis. Patient will be transitioned to hospice per patient's family wishes. HISTORY OF PRESENT ILLNESS: This is a 41-year-old gentleman with a past medical history of multiple medical problems was admitted with severe back pain and multiple other complications from lung cancer with metastasis. Patient was treated symptomatically. Case was discussed at length with the patient and family by multiple consultants including Hematology/Oncology. The family decided to transition to hospice. On exam, vital signs stable. CARDIOVASCULAR SYSTEM: S1, S2. RESPIRATORY: A few rhonchi. Diet is cardiac diet. Follow up with hospice in 1 to 2 days p.r.n. [place] nurse recommended. MEDICATIONS: 1. Ventolin 1 puff q.i.d. p.r.n. 2. Symbicort 1 puff b.i.d. 3. Cipro 500 mg p.o. b.i.d. 4. Dexamethasone 4 mg p.o. daily. 5. Colace 100 mg p.o. b.i.d. 6. Cymbalta 60 mg p.o. daily. 7. Gabapentin 60 mg p.o. t.i.d. 8. Ativan 1 mg t.i.d. p.r.n. 9. Methadone 10 mg p.o. b.i.d. 10.Morphine oral 10 mg p.o. q.4 hours. 11.Zofran 4 mg q.8 p.r.n. 12.Oxycodone ER 20 mg b.i.d. 13.OxyContin 80 mg t.i.d. 14.Protonix 40 mg daily. 15.Spiriva 1 puff daily. Once again, the patient will be discharged in a stable condition with a guarded prognosis. MMODL / IJN: [id number] /
== END 2017-03-21 15:59 | disposition hospice, home (50) | DRG 543 ==
LOC: EC 19:29 → 5ONC 22:36
PROVIDERS: ADMIT Internal Medicine; ATTEND Internal Medicine
DX: M48.54XA Collapsed vertebra, not elsewhere classified, thoracic region, initial encounter for fracture (principal); C79.51 Secondary malignant neoplasm of bone; C79.31 Secondary malignant neoplasm of brain; C79.71 Secondary malignant neoplasm of right adrenal gland; C79.72 Secondary malignant neoplasm of left adrenal gland; C34.90 Malignant neoplasm of unspecified part of unspecified bronchus or lung; E87.1 Hypo-osmolality and hyponatremia; D63.0 Anemia in neoplastic disease; M19.90 Unspecified osteoarthritis, unspecified site; D72.829 Elevated white blood cell count, unspecified; Z51.5 Encounter for palliative care; Z79.51 Long term (current) use of inhaled steroids; Z79.899 Other long term (current) drug therapy; Z79.891 Long term (current) use of opiate analgesic; Z87.891 Personal history of nicotine dependence; Z87.01 Personal history of pneumonia (recurrent); Z88.0 Allergy status to penicillin; Z66 Do not resuscitate
CPT/HCPCS: 36415; 74150; 80048; 81001; 85025; 94640; 96374; 96376; 99285